=== PATIENT | female | born 1965 | race American Indian/Alaskan Native ===

== ENCOUNTER 2021-05-12 10:30 | Inpatient (IN) | payer OTHER ==
[2021-05-12] MEDS ORDERED: SODIUM CHLORIDE 0.9% 1000 ML 1,000 ML IV ONE (11:06)
[2021-05-12] MEDS ORDERED: ONDANSETRON 4 MG/2 ML INJ IV ONE (11:10)
--- NOTE | 2021-05-12 11:20 | Emergency Department Report ---
ED Syncope HPI - General Chief Complaint: Syncope Stated Complaint: SYNCOPE Time Seen by Provider: 05/12/21 10:52 Source: patient Exam Limitations: clinical condition - History of Present Illness Initial Comments: 56-year-old female with a past medical history of chronic iron deficiency anemia requiring blood transfusion, chronic left leg wound being managed at [facility] through [place], chronic migraines, and hypertension presents to the hospital complaining of generalized weakness x1 week and a syncopal episode 2 hours prior to arrival. Patient not currently taking iron tablets. Positive for exertion x1 week. She denies chest pain history of DVT/PE. Nausea, vomiting, and diarrhea for last 2 days without hematemesis, hematochezia, melena, or vaginal bleeding. She has a chronic ongoing headache due to migraines which is currently present on the right side of her head. She has a chronic left leg wound which she says is almost healed. Last wound dressing placed on May 08 with no signs of infection. Patient denies worsening leg pain or fever. Patient is vaccinated for Covid. EMS reports that O2 sat upon their arrival was in the 60s on room air. Nurse reports to me that patient's room air saturation in the mid 80s prior to supplemental oxygen placement. PMD: [place] - Related Data Allergies/Adverse Reactions: Allergies No Known Allergies Allergy (Unverified 09/03/14 17:03) Home Medications: Ambulatory Orders Ferrous Sulfate [Feosol 325mg] 325 mg PO BID 09/03/14 Ibuprofen [Motrin 800 MG tab] 800 mg PO TID PRN 09/03/14 SUMAtriptan SUCCINATE [Imitrex] 100 mg PO DAILY PRN 09/03/14 Butalb/Acetamin/Caff 50-325-40 [Fioricet 50-325-40] 2 tab PO Q6H PRN #15 tablet 09/12/14 HYDROcodone/APAP 10-325 [[place] 10-325 mg TAB] 1 each PO Q6H PRN #10 tablet 09/12/14 guaiFENesin [Robitussin] 200 mg PO Q6HR #20 tablet 09/12/14 levoFLOXacin [Levaquin] 500 mg PO QDAY #7 tablet 09/12/14 ED Review of Systems ROS: Stated complaint: SYNCOPE Other details as noted in HPI Comment: All other systems reviewed and negative ED Past Medical Hx - Past Medical History Hx Hypertension: Yes Hx Congestive Heart Failure: No Hx Diabetes: No Hx Arthritis: Yes Hx Headaches / Migraines: Yes Hx Asthma: No Hx COPD: No Additional medical history: Anemia from heavy periods - Surgical History Hx Cholecystectomy: Yes - Social History Smoking Status: Never Smoker - Medications Home Medications: Home Medications Medication Instructions Recorded Confirmed Last Taken Type Ferrous Sulfate [Feosol 325mg] 325 mg PO BID 09/03/14 09/03/14 Unknown History Ibuprofen [Motrin 800 MG tab] 800 mg PO TID PRN 09/03/14 09/03/14 09/02/14 History SUMAtriptan SUCCINATE [Imitrex] 100 mg PO DAILY PRN 09/03/14 09/04/14 Unknown History Butalb/Acetamin/Caff 50-325-40 2 tab PO Q6H PRN #15 tablet 09/12/14 Unknown Rx [Fioricet 50-325-40] HYDROcodone/APAP 10-325 [[place] 1 each PO Q6H PRN #10 tablet 09/12/14 Unknown Rx 10-325 mg TAB] guaiFENesin [Robitussin] 200 mg PO Q6HR #20 tablet 09/12/14 Unknown Rx levoFLOXacin [Levaquin] 500 mg PO QDAY #7 tablet 09/12/14 Unknown Rx ED Physical Exam - General Limitations: No Limitations ( ) - Other Other exam information: General: No acute distress Head: Atraumatic Eyes: normal appearance ENT: Moist mucous membranes Neck: Normal appearance, no midline tenderness Chest: Clear to auscultation bilaterally CV: Regular rate and rhythm Abdomen: Soft, normal bowel sounds, nontender, nondistended, no rebound or guarding Back: Normal inspection Extremity: Left leg completely wrapped in wound dressing below the knee and extending down to the foot Neuro: Lethargic but easily arousable, oriented x3, no facial asymmetry, speech clear, no gross motor sensory deficit Psych: Appropriate behavior Skin: No rash ED Course Vital Signs 05/12/21 05/12/21 05/12/21 10:39 10:45 10:49 Temperature 97.6 F Pulse Rate 106 H Respiratory 20 Rate Blood Pressure 137/76 118/70 Blood Pressure 118/70 [Left] O2 Sat by Pulse 83 L 94 96 Oximetry 05/12/21 05/12/21 05/12/21 11:01 11:07 11:31 Temperature 98.6 F Pulse Rate 104 H 106 H 101 H Respiratory 19 16 13 Rate Blood Pressure 118/70 118/70 102/61 Blood Pressure [Left] O2 Sat by Pulse 96 95 97 Oximetry 05/12/21 05/12/21 05/12/21 13:30 14:13 14:31 Temperature Pulse Rate 109 H 123 H 107 H Respiratory 15 20 20 Rate Blood Pressure 118/85 112/80 121/86 Blood Pressure [Left] O2 Sat by Pulse 98 98 100 Oximetry 05/12/21 05/12/21 05/12/21 15:01 15:31 16:01 Temperature Pulse Rate 110 H 116 H 110 H Respiratory 18 28 H 16 Rate Blood Pressure 121/86 118/78 119/76 Blood Pressure [Left] O2 Sat by Pulse 100 100 100 Oximetry 05/12/21 05/12/21 05/12/21 17:01 17:31 18:01 Temperature Pulse Rate 100 H 105 H 117 H Respiratory 16 17 20 Rate Blood Pressure 128/77 128/76 119/73 Blood Pressure [Left] O2 Sat by Pulse 100 100 100 Oximetry 05/12/21 05/12/21 05/12/21 18:31 19:01 19:11 Temperature Pulse Rate 101 H 101 H 102 H Respiratory 17 17 15 Rate Blood Pressure 91/49 115/66 115/66 Blood Pressure [Left] O2 Sat by Pulse 100 100 100 Oximetry 05/12/21 05/12/21 05/12/21 19:21 19:31 19:41 Temperature Pulse Rate 102 H 101 H 105 H Respiratory 18 17 16 Rate Blood Pressure 123/74 123/74 123/74 Blood Pressure [Left] O2 Sat by Pulse 100 100 100 Oximetry 05/12/21 05/12/21 05/12/21 19:50 20:01 20:11 Temperature Pulse Rate 114 H 111 H 105 H Respiratory 14 22 20 Rate Blood Pressure 112/56 112/56 112/56 Blood Pressure [Left] O2 Sat by Pulse 100 100 Oximetry 05/12/21 05/12/21 05/12/21 20:21 20:31 20:35 Temperature 97.5 F L Pulse Rate 112 H 111 H 110 H Respiratory 20 17 17 Rate Blood Pressure 112/67 112/67 Blood Pressure 112/67 [Left] O2 Sat by Pulse 100 100 100 Oximetry 05/12/21 05/12/21 05/12/21 20:41 20:51 21:01 Temperature Pulse Rate 111 H 105 H 103 H Respiratory 23 17 17 Rate Blood Pressure 112/67 106/67 106/67 Blood Pressure [Left] O2 Sat by Pulse 100 99 100 Oximetry 05/12/21 05/12/21 05/12/21 21:11 21:21 21:31 Temperature Pulse Rate 103 H 110 H 102 H Respiratory 16 17 18 Rate Blood Pressure 106/67 106/60 106/60 Blood Pressure [Left] O2 Sat by Pulse 100 100 100 Oximetry 05/12/21 05/12/21 05/12/21 21:41 21:51 22:29 Temperature 97.8 F Pulse Rate 104 H 104 H 114 H Respiratory 18 19 19 Rate Blood Pressure 106/60 110/69 112/70 Blood Pressure [Left] O2 Sat by Pulse 100 100 99 Oximetry - ABG Interpretation Ph: 7.43 PCO2: 37 PO2: 55 Bicarbonate: 24 Interpretation: other (hyoxia) ED Medical Decision Making - Lab Data Result diagrams: 05/13/21 06:10 05/12/21 11:25 Lab Results 05/12/21 05/12/21 05/12/21 Range/Units 11:25 11:25 11:25 WBC 17.5 H (4.5-11.0) K/mm3 RBC 4.20 (3.65-5.03) M/mm3 Hgb 11.8 (10.1-14.3) gm/dl Hct 36.9 (30.3-42.9) % MCV 88 (79-97) fl MCH 28 (28-32) pg MCHC 32 (30-34) % RDW 14.5 (13.2-15.2) % Plt Count 282 (140-440) K/mm3 Add Manual Diff Complete Total Counted 100 Seg Neutrophils % Radar Signal Processing Engineer Seg Neuts % (Manual) 96.0 H (40.0-70.0) % Band Neutrophils % 1.0 % Lymphocytes % (Manual) 2.0 L (13.4-35.0) % Monocytes % (Manual) 1.0 (0.0-7.3) % Nucleated RBC % Not Reportable Seg Neutrophils # Man 16.8 H (1.8-7.7) K/mm3 Band Neutrophils # 0.2 K/mm3 Lymphocytes # (Manual) 0.4 L (1.2-5.4) K/mm3 Abs React Lymphs (Man) 0.0 K/mm3 Monocytes # (Manual) 0.2 (0.0-0.8) K/mm3 Eosinophils # (Manual) 0.0 (0.0-0.4) K/mm3 Basophils # (Manual) 0.0 (0.0-0.1) K/mm3 Metamyelocytes # 0.0 K/mm3 Myelocytes # 0.0 K/mm3 Promyelocytes # 0.0 K/mm3 Blast Cells # 0.0 K/mm3 WBC Morphology Not Reportable Hypersegmented Neuts Not Reportable Hyposegmented Neuts Not Reportable Hypogranular Neuts Not Reportable Smudge Cells Not Reportable Toxic Granulation Not Reportable Toxic Vacuolation Not Reportable Dohle Bodies Not Reportable Pelger-Huet Anomaly Not Reportable Gary Rods Not Reportable Platelet Estimate Consistent w auto Clumped Platelets Not Reportable Plt Clumps, EDTA Not Reportable Large Platelets Not Reportable Giant Platelets Not Reportable Platelet Satelliting Not Reportable Plt Morphology Comment Not Reportable RBC Morphology Not Reportable Dimorphic RBCs Not Reportable Polychromasia Not Reportable Hypochromasia Not Reportable Poikilocytosis Not Reportable Anisocytosis 1+ Microcytosis Not Reportable Macrocytosis Not Reportable Spherocytes Not Reportable Pappenheimer Bodies Not Reportable Sickle Cells Not Reportable Target Cells Not Reportable Tear Drop Cells Not Reportable Ovalocytes Not Reportable Helmet Cells Not Reportable Van-[place] Bodies Not Reportable [place] Rings Not Reportable Ran Cells Not Reportable Bite Cells Not Reportable Crenated Cell Not Reportable Elliptocytes Not Reportable Acanthocytes (Spur) Not Reportable Rouleaux Not Reportable Hemoglobin C Crystals Not Reportable Schistocytes Not Reportable Malaria parasites Not Reportable [place]air Bodies Not Reportable Hem Pathologist Commnt No PT 14.3 (12.2-14.9) Sec. INR 1.00 (0.87-1.13) APTT 31.1 (24.2-36.6) Sec. ABG pH (7.350-7.450) pH Units ABG pCO2 mm Hg ABG pO2 (80.0-90.0) mm Hg ABG HCO3 (20.0-26.0) mmol/L ABG O2 Saturation (95.0-99.0) % ABG O2 Content (0.0-44) ABG Base Excess (-2.0-3.0) mmol/L ABG Hemoglobin (12.0-16.0) gm/dl ABG Carboxyhemoglobin (0.0-5.0) % ABG Methemoglobin (0.0-1.5) % Oxyhemoglobin (95.0-99.0) % FiO2 % Sodium 141 (137-145) mmol/L Potassium 3.4 L (3.6-5.0) mmol/L Chloride 99.9 (98-107) mmol/L Carbon Dioxide 25 (22-30) mmol/L Anion Gap 20 mmol/L BUN 14 (7-17) mg/dL Creatinine 0.8 (0.6-1.2) mg/dL Estimated GFR > 60 ml/min BUN/Creatinine Ratio 18 % Glucose 169 H (65-100) mg/dL Calcium 9.3 (8.4-10.2) mg/dL Magnesium 1.90 (1.7-2.3) mg/dL Total Bilirubin 0.80 (0.1-1.2) mg/dL AST 10 (5-40) units/L ALT 8 (7-56) units/L Alkaline Phosphatase 122 (35-129) units/L Troponin T 0.018 (0.00-0.029) ng/mL Total Protein 7.5 (6.3-8.2) g/dL Albumin 3.6 L (3.9-5) g/dL Albumin/Globulin Ratio 0.9 % Blood Type Antibody Screen 05/12/21 05/12/21 Range/Units 11:25 12:29 WBC (4.5-11.0) K/mm3 RBC (3.65-5.03) M/mm3 Hgb (10.1-14.3) gm/dl Hct (30.3-42.9) % MCV (79-97) fl MCH (28-32) pg MCHC (30-34) % RDW (13.2-15.2) % Plt Count (140-440) K/mm3 Add Manual Diff Total Counted Seg Neutrophils % Seg Neuts % (Manual) (40.0-70.0) % Band Neutrophils % % Lymphocytes % (Manual) (13.4-35.0) % Monocytes % (Manual) (0.0-7.3) % Nucleated RBC % Seg Neutrophils # Man (1.8-7.7) K/mm3 Band Neutrophils # K/mm3 Lymphocytes # (Manual) (1.2-5.4) K/mm3 Abs React Lymphs (Man) K/mm3 Monocytes # (Manual) (0.0-0.8) K/mm3 Eosinophils # (Manual) (0.0-0.4) K/mm3 Basophils # (Manual) (0.0-0.1) K/mm3 Metamyelocytes # K/mm3 Myelocytes # K/mm3 Promyelocytes # K/mm3 Blast Cells # K/mm3 WBC Morphology Hypersegmented Neuts Hyposegmented Neuts Hypogranular Neuts Smudge Cells Toxic Granulation Toxic Vacuolation Dohle Bodies Pelger-Huet Anomaly Gary Rods Platelet Estimate Clumped Platelets Plt Clumps, EDTA Large Platelets Giant Platelets Platelet Satelliting Plt Morphology Comment RBC Morphology Dimorphic RBCs Polychromasia Hypochromasia Poikilocytosis Anisocytosis Microcytosis Macrocytosis Spherocytes Pappenheimer Bodies Sickle Cells Target Cells Tear Drop Cells Ovalocytes Helmet Cells Van-[place] Bodies [place] Rings [place] Cells Bite Cells Crenated Cell Elliptocytes Acanthocytes (Spur) Rouleaux Hemoglobin C Crystals Schistocytes Malaria parasites Aldair Bodies Hem Pathologist Commnt PT (12.2-14.9) Sec. INR (0.87-1.13) APTT (24.2-36.6) Sec. ABG pH 7.430 (7.350-7.450) pH Units ABG pCO2 37.5 mm Hg ABG pO2 55.3 L (80.0-90.0) mm Hg ABG HCO3 24.3 (20.0-26.0) mmol/L ABG O2 Saturation 89.3 L (95.0-99.0) % ABG O2 Content 15.4 (0.0-44) ABG Base Excess 0.2 (-2.0-3.0) mmol/L ABG Hemoglobin 12.5 (12.0-16.0) gm/dl ABG Carboxyhemoglobin 1.5 (0.0-5.0) % ABG Methemoglobin 0.5 (0.0-1.5) % Oxyhemoglobin 87.6 L (95.0-99.0) % FiO2 21 % Sodium (137-145) mmol/L Potassium (3.6-5.0) mmol/L Chloride (98-107) mmol/L Carbon Dioxide (22-30) mmol/L Anion Gap mmol/L BUN (7-17) mg/dL Creatinine (0.6-1.2) mg/dL Estimated GFR ml/min BUN/Creatinine Ratio % Glucose (65-100) mg/dL Calcium (8.4-10.2) mg/dL Magnesium (1.7-2.3) mg/dL Total Bilirubin (0.1-1.2) mg/dL AST (5-40) units/L ALT (7-56) units/L Alkaline Phosphatase (35-129) units/L Troponin T (0.00-0.029) ng/mL Total Protein (6.3-8.2) g/dL Albumin (3.9-5) g/dL Albumin/Globulin Ratio % Blood Type A POSITIVE Antibody Screen Negative - EKG Data -: EKG Interpreted by [facility] EKG shows normal: sinus rhythm, ST-T waves (Non-STEMI) Rate: tachycardia (103) - Radiology Data Radiology results: report reviewed CHEST 1 VIEW INDICATION / CLINICAL INFORMATION: Syncope. COMPARISON: 09/11/2014 FINDINGS: SUPPORT DEVICES: None. HEART / MEDIASTINUM: No significant abnormality. LUNGS / PLEURA: No focal consolidation. There is a 1.5 cm nodular opacity in the left upper lung zone, not visualized on reference examination. No effusion. No pneumothorax. ADDITIONAL FINDINGS: No significant additional findings. IMPRESSION: 1. No acute findings. 2. 1.5 cm nodular opacity in the left upper lung zone, not visualized on refer ence exam. Recommend further evaluation with CT chest with contrast, which could be performed in out patient setting. CT HEAD WITHOUT CONTRAST INDICATION / CLINICAL INFORMATION: HEADACHE, SYNCOPE, LETHARGY. TECHNIQUE: All CT scans at this location are performed using CT dose reduction for ALARA by means of automated exposure control. COMPARISON: None available. FINDINGS: HEMORRHAGE: None. ACUTE INFARCTION: No Significant Abnormality MASS/MASS EFFECT: No Significant Abnormality CEREBRAL PARENCHYMA: No acute focal attenuation abnormality. VENTRICULAR SYSTEM: Normal in size and morphology for the patient's age. ORBITS: Normal as visualized. SKULL: No significant abnormality. PARANASAL SINUSES / MASTOID AIR CELLS: Normal as visualized. ADDITIONAL FINDINGS: None. IMPRESSION: 1. No acute intracranial abnormality. CTA CHEST WITH CONTRAST INDICATION / CLINICAL INFORMATION: hypoxia, syncope. TECHNIQUE: Axial CT images were obtained through the chest after injection of IV contrast. 3 plane MIP and/or 3D reconstructions were produced. All CT scans at this location are performed using CT dose reduction for ALARA by means of automated exposure control. COMPARISON: None available. FINDINGS: PULMONARY ARTERIES: Extensive filling defects within the segmental and subsegmental pulmonary arteries of all lobes of the lungs. There is minimal involvement of the distal right main pulmonary artery. No central pulmonary embolus. THORACIC AORTA: No significant abnormality. HEART: There is cardiac enlargement with evidence of right heart strain. RV/LV ratio measures 2.6. ADENOPATHY: No significant adenopathy. LUNGS/PLEURA: Patchy airspace opacity within the left upper lobe, to include th e lingula. Remainder of the lungs are clear. No pleural effusion. No pneumothorax. ADDITIONAL FINDINGS: None. UPPER ABDOMEN: No acute findings. SKELETAL STRUCTURES: No significant osseous abnormality. IMPRESSION: 1. Extensive acute bilateral pulmonary emboli involving the segmental and subsegmental pulmonary arteries of all lobes. Minimal involvement of the distal right main pulmonary artery. 2. There is evidence of right heart failure with markedly increased RV/LV ratio . 3. Patchy airspace opacities within the left upper lobe. This may reflect infiltrate or possibly pulmonary infarct. - Medical Decision Making 56-year-old female presents to the hospital with shortness of breath x1 week with syncope today. Hypoxia noted upon presentation which is confirmed by room air ABG. No acid or base disturbance identified. CT angiogram chest confirmed suspicion of bilateral pulmonary emboli with possible pulmonary infarct versus infiltrate. Patient empirically treated with Rocephin azithromycin and blood cultures obtained. Patient also presented complaining of right-sided headache with history of chronic migraines. CT head unremarkable. Patient received a small dose of Benadryl and Reglan for migraine related pain. Left leg with Unna boot and chronic wound suspected as source of pulmonary embolism. Patient treated in the ED with supplemental oxygen support and heparin drip initiated. Covid test ordered. Patient's PMD is affiliated with [place] and [place] transfer service notified. Awaiting callback at disposition to Dr. Campbell. Patient will likely be admitted here given need for oxygen and heparin drip. If patient is admitted here I suggest vascular consultation to determine if patient is a candidate for any intervention given significant clot burden and signs of right heart failure on CT. see Dr Campbell Note: [facility] approved admission here Vascular consulted and no intervention recommend Hospitalist admitted patient Critical Care Time: Yes Critical care time in (mins) excluding proc time.: 35 Critical care attestation.: If time is entered above; I have spent that time in minutes in the direct care of this critically ill patient, excluding procedure time. ED Disposition Clinical Impression: Bilateral pulmonary embolism, Pulmonary infarct, Pulmonary infiltrate Acute respiratory failure Qualifiers: Respiratory failure complication: hypoxia Qualified Code(s): J96.01 - Acute respiratory failure with hypoxia Leg wound, left Qualifiers: Encounter type: initial encounter Qualified Code(s): S81.802A - Unspecified open wound, left lower leg, initial encounter Syncope Qualifiers: Encounter type: initial encounter Disposition: 09 ADMITTED INPATIENT Is pt being admited?: Yes Condition: Stable
--- NOTE | 2021-05-12 12:03 | XRay Report ---
CHEST 1 VIEW INDICATION / CLINICAL INFORMATION: Syncope. COMPARISON: 09/11/2014 FINDINGS: SUPPORT DEVICES: None. HEART / MEDIASTINUM: No significant abnormality. LUNGS / PLEURA: No focal consolidation. There is a 1.5 cm nodular opacity in the left upper lung zone , not visualized on reference examination. No effusion. No pneumothorax. ADDITIONAL FINDINGS: No significant additional findings. IMPRESSION: 1. No acute findings. 2. 1.5 cm nodular opacity in the left upper lung zone, not visualized on reference exam. Recommend f urther evaluation with CT chest with contrast, which could be performed in outpatient setting. Signer Name: Stu Randolph MD Signed: 05/12/2021 11:59 AM Workstation Name: [id number]
[2021-05-12 12:42] LABS: Hematocrit 36.9 % (30.3-42.9); Hemoglobin 11.8 gm/dl (10.1-14.3); Mean Corpuscular HGB Conc 32 % (30-34); Mean Corpuscular Volume 88 fl (79-97); Platelet Count 282 K/mm3 (140-440); Red Cell Distribution Width 14.5 % (13.2-15.2)
[2021-05-12 12:42] LABS: ABG Base Excess 0.2 mmol/L (-2.0-3.0); ABG HCO3 24.3 mmol/L (20.0-26.0); ABG Methemoglobin 0.5 % (0.0-1.5); ABG Oxygen Saturation 89.3 % (95.0-99.0); ABG PCO2 37.5 mm Hg; ABG PH 7.43 pH Units (7.350-7.450); ABG PO2 55.3 mm Hg (80.0-90.0)
--- NOTE | 2021-05-12 12:52 | Cat Scan Report ---
CT HEAD WITHOUT CONTRAST INDICATION / CLINICAL INFORMATION: HEADACHE, SYNCOPE, LETHARGY. TECHNIQUE: All CT scans at this location are performed using CT dose reduction for ALARA by means of automated exposure control. COMPARISON: None available. FINDINGS: HEMORRHAGE: None. ACUTE INFARCTION: No Significant Abnormality MASS/MASS EFFECT: No Significant Abnormality CEREBRAL PARENCHYMA: No acute focal attenuation abnormality. VENTRICULAR SYSTEM: Normal in size and morphology for the patient's age. ORBITS: Normal as visualized. SKULL: No significant abnormality. PARANASAL SINUSES / MASTOID AIR CELLS: Normal as visualized. ADDITIONAL FINDINGS: None. IMPRESSION: 1. No acute intracranial abnormality. Signer Name: Stu Randolph MD Signed: 05/12/2021 12:47 PM Workstation Name: [id number]
[2021-05-12 12:54] LABS: Partial Thromboplastin Time 31.1 Sec. (24.2-36.6)
[2021-05-12 13:11] LABS: Alanine Aminotransferase 8 units/L (7-56); Albumin 3.6 g/dL (3.9-5); BUN/Creatinine Ratio 18; Blood Urea Nitrogen 14 mg/dL (7-17); Calcium 9.3 mg/dL (8.4-10.2); Hemolysis Index 4
[2021-05-12 13:34] LABS: Anisocytosis 1+; Band Neutrophils # (Manual) 0.2 K/mm3; Platelet Estimate Consistent w Auto; Total Cells Counted 100
[2021-05-12] MEDS ORDERED: ONDANSETRON 4 MG/2 ML INJ ONE (14:26)
[2021-05-12] MEDS ORDERED: SODIUM CHLORIDE 0.9% 1000 ML 1,000 ML ONE (14:26)
[2021-05-12] MEDS ORDERED: diphenhydrAMINE 50 MG/ML VIAL IV ONE (14:33)
[2021-05-12] MEDS ORDERED: METOCLOPRAMIDE 10 MG/2 ML INJ IV ONE (14:33)
[2021-05-12] MEDS ORDERED: AZITHROMYCIN/NS 500 MG/250 ML 500 MG/250 ML BAG IV ONE (14:36)
[2021-05-12] MEDS ORDERED: cefTRIAXone/NS 2 GM/100 ML 2 GM/100 ML BAG IV ONE (14:36)
[2021-05-12] MEDS ORDERED: HEPARIN 10,000 UNITS/10 ML VIAL IV PRN (14:37)
[2021-05-12] MEDS ORDERED: HEPARIN 10,000 UNITS/10 ML VIAL IV ONE (14:37)
--- NOTE | 2021-05-12 14:41 | Cat Scan Report ---
CTA CHEST WITH CONTRAST INDICATION / CLINICAL INFORMATION: hypoxia, syncope. TECHNIQUE: Axial CT images were obtained through the chest after injection of IV contrast. 3 plane MS P and/or 3D reconstructions were produced. All CT scans at this location are performed using CT dose reduction for ALARA by means of automated exposure control. COMPARISON: None available. FINDINGS: PULMONARY ARTERIES: Extensive filling defects within the segmental and subsegmental pulmonary arterie s of all lobes of the lungs. There is minimal involvement of the distal right main pulmonary artery. No central pulmonary embolus. THORACIC AORTA: No significant abnormality. HEART: There is cardiac enlargement with evidence of right heart strain. RV/LV ratio measures 2.6. ADENOPATHY: No significant adenopathy. LUNGS/PLEURA: Patchy airspace opacity within the left upper lobe, to include the lingula. Remainder o f the lungs are clear. No pleural effusion. No pneumothorax. ADDITIONAL FINDINGS: None. UPPER ABDOMEN: No acute findings. SKELETAL STRUCTURES: No significant osseous abnormality. IMPRESSION: 1. Extensive acute bilateral pulmonary emboli involving the segmental and subsegmental pulmonary yadi beck of all lobes. Minimal involvement of the distal right main pulmonary artery. 2. There is evidence of right heart failure with markedly increased RV/LV ratio. 3. Patchy airspace opacities within the left upper lobe. This may reflect infiltrate or possibly pulm onary infarct. Findings were discussed with Dr. Ritchie by phone on 05/12/2021 1:37 PM Signer Name: Ramírez Jaime MD Signed: 05/12/2021 2:37 PM Workstation Name: [id number]
--- NOTE | 2021-05-12 15:26 | Emergency Department Report ---
Blank Doc - Documentation Documentation: Case was discussed with the [facility] who agrees that the patient is unstable and would benefit from admission here. Vascular surgeon has been consulted to determine best approach and possible intervention. Hospitalist has been notified for admission.
[2021-05-12] MEDS: HEPARIN/ 0.45% NACL DRIP 25,000 UNIT/500 ML BAG IV SCH ×2 (15:49→19:06)
--- NOTE | 2021-05-12 15:54 | Event Note ---
Date: 05/12/21 Patient with a history of PE noted on CT scan with evidence of RV/LV ratio greater than 1 indicating right heart strain. No troponin leak. PE is p redominately segmental and sub-segmental on review of CT images. Patient satting 100% on oxygen by nasal canula right now. Given the peripheral nature of her PE and stable clinical condition, would not intervene with catheter directed therapy at this time. Additionally, her active leg wound would place her at risk for bleeding with t-PA administration. Would recommend admission to hospitalist, initiation of heparin drip and we will see her in consultation. Discussed her plan of care with Dr. Campbell.
[2021-05-12] MEDS ORDERED: BUTALB/ACETAMINOPHEN/CAFFEINE TAB PO PRN (21:54)
[2021-05-12] MEDS ORDERED: METOCLOPRAMIDE 10 MG/2 ML INJ IV PRN (22:03)
[2021-05-12] MEDS ORDERED: ONDANSETRON 4 MG/2 ML INJ IV PRN (22:03)
[2021-05-12] MEDS ORDERED: oxyCODONE /ACETAMINOPHEN 5-325MG TAB PO PRN (22:03)
[2021-05-12] MEDS ORDERED: ACETAMINOPHEN 325 MG TAB PO PRN (22:03)
[2021-05-12] MEDS: FERROUS SULFATE 325 MG TAB PO SCH (22:37)
[2021-05-12] MEDS: SODIUM CHLORIDE 0.9% 1000 ML 1,000 ML IV SCH (22:39)
[2021-05-12] MEDS: HYDROmorphone 1 MG/1 ML INJ IV PRN (23:07)
[2021-05-12] MEDS ORDERED: POTASSIUM CHLORIDE ER 20 MEQ TAB PO ONE (23:15)
[2021-05-13 06:40] LABS: Basophils % (Auto) 0.3 % (0.0-1.8); Eosinophils % (Auto) 0.1 % (0.0-4.3); Hematocrit 34.6 % (30.3-42.9); Hemoglobin 11.1 gm/dl (10.1-14.3); Lymphocytes # (Auto) 1.2 K/mm3 (1.2-5.4); Lymphocytes % (Auto) 10.3 % (13.4-35.0); Mean Corpuscular HGB Conc 32 % (30-34); Mean Corpuscular Volume 87 fl (79-97); Monocytes # (Auto) 0.4 K/mm3 (0.0-0.8); Monocytes % (Auto) 3.7 % (0.0-7.3); Platelet Count 310 K/mm3 (140-440); Red Blood Count 3.95 M/mm3 (3.65-5.03); Red Cell Distribution Width 14.5 % (13.2-15.2)
--- NOTE | 2021-05-13 06:52 | History and Physical Report ---
History of Present Illness Date of examination: 05/12/21 Date of admission: 05/12/21 15:26 Chief complaint: Shortness of breath for 4 to 5 days History of present illness: 56-year-old female with morbid obesity weighing about 360 pounds with history of chronic iron deficiency and left leg wound for 2 years which is healing, hypertension comes in for shortness of breath for 4 days. Patient is mostly in the bed and not active. Patient also passed out 2 hours prior to arrival. No GI bleed or vaginal bleeding. Last 1 dressing was placed in normal second week with no signs of infection. Left leg is dependent Tay bandage. Patient has shortness of breath on minimal exertion and left breast. No chest pain. No fever or chills. No cough. No exposure to coronavirus. Patient is vaccinated for Covid. - Past Medical History Hypertension: Yes Arthritis: Yes Headaches / Migraines: Yes Additional medical history: Anemia from heavy periods - Surgical History Cholecystectomy: Yes - Social History Smoking Status: Never Smoker Review of Systems ROS: Stated complaint: SYNCOPE Other details as noted in HPI Comment: All other systems reviewed and negative Medications and Allergies Allergies Allergy/AdvReac Type Severity Reaction Status Date / Time No Known Allergies Allergy Unverified 09/03/14 17:03 Home Medications Medication Instructions Recorded Confirmed Last Taken Type Ferrous Sulfate [Feosol 325mg] 325 mg PO BID 09/03/14 09/03/14 Unknown History Ibuprofen [Motrin 800 MG tab] 800 mg PO TID PRN 09/03/14 09/03/14 09/02/14 History SUMAtriptan SUCCINATE [Imitrex] 100 mg PO DAILY PRN 09/03/14 09/04/14 Unknown History Butalb/Acetamin/Caff 50-325-40 2 tab PO Q6H PRN #15 tablet 09/12/14 Unknown Rx [Fioricet 50-325-40] HYDROcodone/APAP 10-325 [[place] 1 each PO Q6H PRN #10 tablet 09/12/14 Unknown Rx 10-325 mg TAB] guaiFENesin [Robitussin] 200 mg PO Q6HR #20 tablet 09/12/14 Unknown Rx levoFLOXacin [Levaquin] 500 mg PO QDAY #7 tablet 09/12/14 Unknown Rx Active Meds: Active Medications Acetaminophen (Acetaminophen 325 Mg Tab) 650 mg PO Q4H PRN PRN Reason: Pain MILD(1-3)/Fever >100.5/LUNA Acetaminophen/Butalbital/Caffeine (Butalb/Acetaminophen/Caffeine Tab) 2 tab PO Q6H PRN PRN Reason: Headache Hydrocodone Bitart/Acetaminophen (Hydrocodone/Acetaminophen 10-325mg Tab) 1 each PO Q6H PRN PRN Reason: Pain, Moderate (4-6) Famotidine (Famotidine 20 Mg/2 Ml Inj) 20 mg IV BID BOBBY Ferrous Sulfate (Ferrous Sulfate 325 Mg Tab) 325 mg PO BID [facility] Last Admin: 05/12/21 22:37 Dose: 325 mg Documented by: Heparin Sodium (Porcine) (Heparin 10,000 Units/10 Ml Vial) 4,800 unit 40 unit/kg (4800 unit) IV Q6H PRN PRN Reason: Anti-Xa Assay < 0.1 units/ml Hydromorphone HCl (Hydromorphone 1 Mg/1 Ml Inj) 0.5 mg IV Q3H PRN PRN Reason: Pain , Severe (7-10) Last Admin: 05/12/21 23:07 Dose: 0.5 mg Documented by: Heparin Sodium/Sodium Chloride (Heparin/ 0.45% Nacl-25,000 Unit/500 Ml) 25,000 unit in 500 mls @ 30 mls/hr IV TITR BOBBY; Protocol Last Titration: 05/13/21 00:02 Dose: 1,500 units/hr, 30 mls/hr Documented by: Sodium Chloride (Nacl 0.9% 1000 Ml) 1,000 mls @ 75 mls/hr IV DIRECT BOBBY Last Admin: 05/12/21 22:39 Dose: 75 mls/hr Documented by: Metoclopramide HCl (Metoclopramide 10 Mg/2 Ml Inj) 10 mg IV Q6H PRN PRN Reason: Nausea And Vomiting Ondansetron HCl (Ondansetron 4 Mg/2 Ml Inj) 4 mg IV Q8H PRN PRN Reason: Nausea And Vomiting Sodium Chloride (Sodium Chloride 0.9% 10 Ml Flush Syringe) 10 ml IV BID BOBBY Sodium Chloride (Sodium Chloride 0.9% 10 Ml Flush Syringe) 10 ml IV PRN PRN PRN Reason: LINE FLUSH Exam - Constitutional Vitals: Temp Pulse Resp BP Pulse Ox 97.6 F 102 H 20 96/61 95 11/14/21 03:32 05/13/21 03:32 05/13/21 03:32 05/13/21 03:32 05/13/21 03:32 General appearance: Present: mild distress, well-nourished - EENT Eyes: Present: PERRL ENT: hearing intact, clear oral mucosa - Neck Neck: Present: supple, normal ROM - Respiratory Respiratory effort: normal Respiratory: bilateral: CTA - Cardiovascular Heart rate: 98 Rhythm: regular Heart Sounds: Present: S1 & S2. Absent: rub, click - Extremities Extremities: pulses symmetrical, No edema Peripheral Pulses: within normal limits - Abdominal General gastrointestinal: Present: soft, non-tender, non-distended, normal bowel sounds Female genitourinary: Present: normal - Rectal Rectal Exam: deferred - Integumentary Integumentary: Present: clear, warm, dry - Musculoskeletal Musculoskeletal: gait normal, strength equal bilaterally - Psychiatric Psychiatric: appropriate mood/affect, intact judgment & insight - Neurologic Neurologic: CNII-XII intact, moves all extremities - Allied Health Allied health notes reviewed: nursing, case management HEART Score - HEART Score History: Slightly suspicious Age: 45-65 Risk factors: 1-2 risk factors Troponin: Troponin T 0.018 ng/mL (0.00-0.029) 05/12/21 11:25 Troponin: < normal limit Results - Labs CBC & Chem 7: 05/13/21 06:10 05/12/21 11:25 Labs: Laboratory Last Values WBC 11.6 K/mm3 (4.5-11.0) H 05/13/21 06:10 RBC 3.95 M/mm3 (3.65-5.03) 05/13/21 06:10 Hgb 11.1 gm/dl (10.1-14.3) 05/13/21 06:10 Hct 34.6 % (30.3-42.9) 05/13/21 06:10 MCV 87 fl (79-97) 05/13/21 06:10 MCH 28 pg (28-32) 05/13/21 06:10 MCHC 32 % (30-34) 05/13/21 06:10 RDW 14.5 % (13.2-15.2) 05/13/21 06:10 Plt Count 310 K/mm3 (140-440) 05/13/21 06:10 Lymph % (Auto) 10.3 % (13.4-35.0) L 05/13/21 06:10 [place] % (Auto) 3.7 % (0.0-7.3) 05/13/21 06:10 Eos % (Auto) 0.1 % (0.0-4.3) 05/13/21 06:10 Baso % (Auto) 0.3 % (0.0-1.8) 05/13/21 06:10 Lymph # (Auto) 1.2 K/mm3 (1.2-5.4) 05/13/21 06:10 [place] # (Auto) 0.4 K/mm3 (0.0-0.8) 05/13/21 06:10 Eos # (Auto) 0.0 K/mm3 (0.0-0.4) 05/13/21 06:10 Baso # (Auto) 0.0 K/mm3 (0.0-0.1) 05/13/21 06:10 Add Manual Diff Complete 05/12/21 11:25 Total Counted 100 05/12/21 11:25 Seg Neutrophils % 85.6 % (40.0-70.0) H 05/13/21 06:10 Seg Neuts % (Manual) 96.0 % (40.0-70.0) H 05/12/21 11:25 Band Neutrophils % 1.0 % 05/12/21 11:25 Lymphocytes % (Manual) 2.0 % (13.4-35.0) L 05/12/21 11:25 Monocytes % (Manual) 1.0 % (0.0-7.3) 05/12/21 11:25 Nucleated RBC % Not Reportable 05/12/21 11:25 Seg Neutrophils # 9.9 K/mm3 (1.8-7.7) H 05/13/21 06:10 Seg Neutrophils # Man 16.8 K/mm3 (1.8-7.7) H 05/12/21 11:25 Band Neutrophils # 0.2 K/mm3 05/12/21 11:25 Lymphocytes # (Manual) 0.4 K/mm3 (1.2-5.4) L 05/12/21 11:25 Abs React Lymphs (Man) 0.0 K/mm3 05/12/21 11:25 Monocytes # (Manual) 0.2 K/mm3 (0.0-0.8) 05/12/21 11:25 Eosinophils # (Manual) 0.0 K/mm3 (0.0-0.4) 05/12/21 11:25 Basophils # (Manual) 0.0 K/mm3 (0.0-0.1) 05/12/21 11:25 Metamyelocytes # 0.0 K/mm3 05/12/21 11:25 Myelocytes # 0.0 K/mm3 05/12/21 11:25 Promyelocytes # 0.0 K/mm3 05/12/21 11:25 Blast Cells # 0.0 K/mm3 05/12/21 11:25 WBC Morphology Not Reportable 05/12/21 11:25 Hypersegmented Neuts Not Reportable 05/12/21 11:25 Hyposegmented Neuts Not Reportable 05/12/21 11:25 Hypogranular Neuts Not Reportable 05/12/21 11:25 Smudge Cells Not Reportable 05/12/21 11:25 Toxic Granulation Not Reportable 05/12/21 11:25 Toxic Vacuolation Not Reportable 05/12/21 11:25 Dohle Bodies Not Reportable 05/12/21 11:25 Pelger-Huet Anomaly Not Reportable 05/12/21 11:25 Gary Rods Not Reportable 05/12/21 11:25 Platelet Estimate Consistent w auto 05/12/21 11:25 Clumped Platelets Not Reportable 05/12/21 11:25 Plt Clumps, EDTA Not Reportable 05/12/21 11:25 Large Platelets Not Reportable 05/12/21 11:25 Giant Platelets Not Reportable 05/12/21 11:25 Platelet Satelliting Not Reportable 05/12/21 11:25 Plt Morphology Comment Not Reportable 05/12/21 11:25 RBC Morphology Not Reportable 05/12/21 11:25 Dimorphic RBCs Not Reportable 05/12/21 11:25 Polychromasia Not Reportable 05/12/21 11:25 Hypochromasia Not Reportable 05/12/21 11:25 Poikilocytosis Not Reportable 05/12/21 11:25 Anisocytosis 1+ 05/12/21 11:25 Microcytosis Not Reportable 05/12/21 11:25 Macrocytosis Not Reportable 05/12/21 11:25 Spherocytes Not Reportable 05/12/21 11:25 Pappenheimer Bodies Not Reportable 05/12/21 11:25 Sickle Cells Not Reportable 05/12/21 11:25 Target Cells Not Reportable 05/12/21 11:25 Tear Drop Cells Not Reportable 05/12/21 11:25 Ovalocytes Not Reportable 05/12/21 11:25 Helmet Cells Not Reportable 05/12/21 11:25 [place] Bodies Not Reportable 05/12/21 11:25 [place] Rings Not Reportable 05/12/21 11:25 [place] Cells Not Reportable 05/12/21 11:25 Bite Cells Not Reportable 05/12/21 11:25 Crenated Cell Not Reportable 05/12/21 11:25 Elliptocytes Not Reportable 05/12/21 11:25 Acanthocytes (Spur) Not Reportable 05/12/21 11:25 Rouleaux Not Reportable 05/12/21 11:25 Hemoglobin C Crystals Not Reportable 05/12/21 11:25 Schistocytes Not Reportable 05/12/21 11:25 Malaria parasites Not Reportable 05/12/21 11:25 [place] Bodies Not Reportable 05/12/21 11:25 Hem Pathologist Commnt No 05/12/21 11:25 PT 14.3 Sec. (12.2-14.9) 05/12/21 11:25 INR 1.00 (0.87-1.13) 05/12/21 11:25 APTT 31.1 Sec. (24.2-36.6) 05/12/21 11:25 Heparin Anti-Xa Level 0.47 U.I./ml (0.3-0.7) 05/13/21 06:10 ABG pH 7.430 pH Units (7.350-7.450) 05/12/21 12:29 ABG pCO2 37.5 mm Hg 05/12/21 12:29 ABG pO2 55.3 mm Hg (80.0-90.0) L 05/12/21 12:29 ABG HCO3 24.3 mmol/L (20.0-26.0) 05/12/21 12:29 ABG O2 Saturation 89.3 % (95.0-99.0) L 05/12/21 12:29 ABG O2 Content 15.4 (0.0-44) 05/12/21 12:29 ABG Base Excess 0.2 mmol/L (-2.0-3.0) 05/12/21 12:29 ABG Hemoglobin 12.5 gm/dl (12.0-16.0) 05/12/21 12:29 ABG Carboxyhemoglobin 1.5 % (0.0-5.0) 05/12/21 12:29 ABG Methemoglobin 0.5 % (0.0-1.5) 05/12/21 12: Oxyhemoglobin 87.6 % (95.0-99.0) L 05/12/21 12:29 FiO2 21 % 05/12/21 12:29 Sodium 141 mmol/L (137-145) 05/12/21 11:25 Potassium 3.4 mmol/L (3.6-5.0) L 05/12/21 11:25 Chloride 99.9 mmol/L (98-107) 05/12/21 11:25 Carbon Dioxide 25 mmol/L (22-30) 05/12/21 11:25 Anion Gap 20 mmol/L 05/12/21 11:25 BUN 14 mg/dL (7-17) 05/12/21 11:25 Creatinine 0.8 mg/dL (0.6-1.2) 05/12/21 11:25 Estimated GFR > 60 ml/min 05/12/21 11:25 BUN/Creatinine Ratio 18 % 05/12/21 11:25 Glucose 169 mg/dL (65-100) H 05/12/21 11:25 Calcium 9.3 mg/dL (8.4-10.2) 05/12/21 11:25 Magnesium 1.90 mg/dL (1.7-2.3) 05/12/21 11:25 Total Bilirubin 0.80 mg/dL (0.1-1.2) 05/12/21 11:25 AST 10 units/L (5-40) 05/12/21 11:25 ALT 8 units/L (7-56) 05/12/21 11:25 Alkaline Phosphatase 122 units/L (35-129) 05/12/21 11:25 Troponin T 0.018 ng/mL (0.00-0.029) 05/12/21 11:25 Total Protein 7.5 g/dL (6.3-8.2) 05/12/21 11:25 Albumin 3.6 g/dL (3.9-5) L 05/12/21 11:25 Albumin/Globulin Ratio 0.9 % 05/12/21 11:25 Blood Type A POSITIVE 05/12/21 11:25 Antibody Screen Negative 05/12/21 11:25 Short CBC 05/12/21 05/13/21 Range/Units 11:25 06:10 WBC 17.5 H 11.6 H (4.5-11.0) K/mm3 Hgb 11.8 11.1 (10.1-14.3) gm/dl Hct 36.9 34.6 (30.3-42.9) % Plt Count 282 310 (140-440) K/mm3 BMP 05/12/21 11:25 Sodium 141 Potassium 3.4 L Chloride 99.9 Carbon Dioxide 25 BUN 14 Creatinine 0.8 Glucose 169 H Calcium 9.3 Cardiac Enzymes 05/12/21 Range/Units 11:25 Troponin T 0.018 (0.00-0.029) ng/mL Liver Function 05/12/21 Range/Units 11:25 Total Bilirubin 0.80 (0.1-1.2) mg/dL AST 10 (5-40) units/L ALT 8 (7-56) units/L Alkaline Phosphatase 122 (35-129) units/L Albumin 3.6 L (3.9-5) g/dL Microbiology: Microbiology 05/12/21 14:54 Peripheral/Venous Blood Culture - Preliminary Culture in Progress 05/12/21 14:44 Peripheral/Venous Blood Culture - Preliminary Culture in Progress - Imaging and Cardiology EKG: report reviewed (Sinus tachycardia) CT scan - chest: report reviewed (Bilateral pulmonary embolism) Imaging and Cardiology: Chest CTA Extensive acute bilateral pulmonary emboli involving the segmental and subsegmental pulmonary arteries of lower lobes. Minimal involvement of the distal right main pulmonary artery. There is evidence of right heart failure with markedly increased RV/LV ratio. Patchy airspace opacities within the left upper lobe. This may reflect infiltrates or possibly pulmonary infarct. Chest x-ray No acute findings [place]/IV: Voiding Method External Female Catheter Assessment and Plan Advance Directives: Yes (Full code) VTE prophylaxis?: Chemical Plan of care discussed with patient/family: Yes - Patient Problems (1) Acute pulmonary embolism Current Visit: Yes Status: Acute Qualifiers: Acute cor pulmonale presence: without acute cor pulmonale Plan to address problem: Patient started on IV heparin as per standard protocol No cor pulmonale Vascular/interventional radiology consulted for possible EKOS As per them not a candidate for EKOS (2) Hypertension Current Visit: Yes Status: Chronic Qualifiers: Hypertension type: primary hypertension Qualified Code(s): I10 - Essential (primary) hypertension Plan to address problem: Continue antihypertensives and adjust medications (3) Leg wound, left Current Visit: Yes Status: Chronic Qualifiers: Encounter type: initial encounter Qualified Code(s): S81.802A - Unspecified open wound, left lower leg, initial encounter Plan to address problem: Wound care Left lower extremity in dressing (4) Pulmonary infarct Current Visit: Yes Status: Acute Plan to address problem: 3 chest pain on a as needed basis (5) Syncope Current Visit: Yes Status: Acute Qualifiers: Encounter type: initial encounter Plan to address problem: Secondary to PE No further work-up Echocardiogram if necessary (6) DVT prophylaxis Current Visit: Yes Status: Acute Plan to address problem: On heparin and GI prophylaxis
[2021-05-13 07:04] LABS: Alanine Aminotransferase 7 units/L (7-56); Albumin 3.4 g/dL (3.9-5); Blood Urea Nitrogen 14 mg/dL (7-17); Calcium 8.7 mg/dL (8.4-10.2); Hemolysis Index 2
[2021-05-13 07:11] LABS: BUN/Creatinine Ratio 23
--- NOTE | 2021-05-13 08:05 | Progress Note ---
Assessment and Plan Assessment and plan: #Acute pulmonary emboli #Pulmonary infarct -CTA showed extensive acute segmental and subsegmental bilateral pulmonary emboli in all lobes -Currently on heparin drip -Echocardiogram ordered due to syncopal episode and to assess right heart status -Plan to transition to oral anticoagulation, will need for early 6 months -Vascular surgery following, no plans for intervention at this time #Chronic left lower extremity wound #Lymphedema -arterial duplex ordered while inpatient -will need outpatient venous ultrasound with reflux -continue gabapentin #Hypokalemia -resolved #Hypertension -controlled -metoprolol restarted at home dose #Morbid obesity -BMI 55% -Patient essentially bedbound at home -Discussed importance of lifestyle modification and weight loss as it greatly affects her quality of life. Discussed possibility of bariatric surgery in the future. Patient voiced understanding. Time: 15 minutes #History of migraine headaches -imitrex PRN at home dose Disposition Plan: home once medically stable Total Time Spent with Patient (Minutes): 20 minutes History Interval history: No acute meds overnight. Patient reports feeling much better with oxygen than she did without it. Having pleuritic chest pain and a mild migraine. Otherwise no complaints today. Hospitalist Physical - Physical exam Narrative exam: GENERAL: Obese woman. Sitting in bed, no acute distress. HEENT: Nasal cannula at 3 L/min CHEST/LUNGS: CTAB. HEART/CARDIOVASCULAR: Tachycardic. No murmur, rubs or gallops appreciated. ABDOMEN: +BS. NT/ND. NEURO: No focal motor deficit. Follows all commands. EXTREMITIES: +lymphedema. Left lower extremity wrapped in Tay bandage. No cyanosis, clubbing. PSYCH: Cooperative. - Constitutional Vitals: Temp Pulse Resp BP Pulse Ox 97.6 F 102 H 20 96/61 95 05/13/21 03:32 05/13/21 03:32 05/13/21 03:32 05/13/21 03:32 05/13/21 03:32 General appearance: Present: mild distress, well-nourished HEART Score - HEART Score Age: 45-65 Risk factors: 1-2 risk factors Troponin: Troponin T 0.018 ng/mL (0.00-0.029) 05/12/21 11:25 Troponin: < normal limit Results - Labs CBC & Chem 7: 05/13/21 06:10 05/13/21 06:10 Labs: Laboratory Last Values WBC 11.6 K/mm3 (4.5-11.0) H 05/13/21 06:10 RBC 3.95 M/mm3 (3.65-5.03) 05/13/21 06:10 Hgb 11.1 gm/dl (10.1-14.3) 05/13/21 06:10 Hct 34.6 % (30.3-42.9) 05/13/21 06:10 MCV 87 fl (79-97) 05/13/21 06:10 MCH 28 pg (28-32) 05/13/21 06:10 MCHC 32 % (30-34) 05/13/21 06:10 RDW 14.5 % (13.2-15.2) 05/13/21 06:10 Plt Count 310 K/mm3 (140-440) 05/13/21 06:10 Lymph % (Auto) 10.3 % (13.4-35.0) L 05/13/21 06:10 [place] % (Auto) 3.7 % (0.0-7.3) 05/13/21 06:10 Eos % (Auto) 0.1 % (0.0-4.3) 05/13/21 06:10 Baso % (Auto) 0.3 % (0.0-1.8) 05/13/21 06:10 Lymph # (Auto) 1.2 K/mm3 (1.2-5.4) 05/13/21 06:10 [place] # (Auto) 0.4 K/mm3 (0.0-0.8) 05/13/21 06:10 Eos # (Auto) 0.0 K/mm3 (0.0-0.4) 05/13/21 06:10 Baso # (Auto) 0.0 K/mm3 (0.0-0.1) 05/13/21 06:10 Add Manual Diff Complete 05/12/21 11:25 Total Counted 100 05/12/21 11:25 Seg Neutrophils % 85.6 % (40.0-70.0) H 05/13/21 06:10 Seg Neuts % (Manual) 96.0 % (40.0-70.0) H 05/12/21 11:25 Band Neutrophils % 1.0 % 05/12/21 11:25 Lymphocytes % (Manual) 2.0 % (13.4-35.0) L 05/12/21 11:25 Monocytes % (Manual) 1.0 % (0.0-7.3) 05/12/21 11:25 Nucleated RBC % Not Reportable 05/12/21 11:25 Seg Neutrophils # 9.9 K/mm3 (1.8-7.7) H 05/13/21 06:10 Seg Neutrophils # Man 16.8 K/mm3 (1.8-7.7) H 05/12/21 11:25 Band Neutrophils # 0.2 K/mm3 05/12/21 11:25 Lymphocytes # (Manual) 0.4 K/mm3 (1.2-5.4) L 05/12/21 11:25 Abs React Lymphs (Man) 0.0 K/mm3 05/12/21 11:25 Monocytes # (Manual) 0.2 K/mm3 (0.0-0.8) 05/12/21 11:25 Eosinophils # (Manual) 0.0 K/mm3 (0.0-0.4) 05/12/21 11:25 Basophils # (Manual) 0.0 K/mm3 (0.0-0.1) 05/12/21 11:25 Metamyelocytes # 0.0 K/mm3 05/12/21 11:25 Myelocytes # 0.0 K/mm3 05/12/21 11:25 Promyelocytes # 0.0 K/mm3 05/12/21 11:25 Blast Cells # 0.0 K/mm3 05/12/21 11:25 WBC Morphology Not Reportable 05/12/21 11:25 Hypersegmented Neuts Not Reportable 05/12/21 11:25 Hyposegmented Neuts Not Reportable 05/12/21 11:25 Hypogranular Neuts Not Reportable 05/12/21 11:25 Smudge Cells Not Reportable 05/12/21 11:25 Toxic Granulation Not Reportable 05/12/21 11:25 Toxic Vacuolation Not Reportable 05/12/21 11:25 Dohle Bodies Not Reportable 05/12/21 11:25 Pelger-Huet Anomaly Not Reportable 05/12/21 11:25 Gary Rods Not Reportable 05/12/21 11:25 Platelet Estimate Consistent w auto 05/12/21 11:25 Clumped Platelets Not Reportable 05/12/21 11:25 Plt Clumps, EDTA Not Reportable 05/12/21 11:25 Large Platelets Not Reportable 05/12/21 11:25 Giant Platelets Not Reportable 05/12/21 11:25 Platelet Satelliting Not Reportable 05/12/21 11:25 Plt Morphology Comment Not Reportable 05/12/21 11:25 RBC Morphology Not Reportable 05/12/21 11:25 Dimorphic RBCs Not Reportable 05/12/21 11:25 Polychromasia Not Reportable 05/12/21 11:25 Hypochromasia Not Reportable 05/12/21 11:25 Poikilocytosis Not Reportable 05/12/21 11:25 Anisocytosis 1+ 05/12/21 11:25 Microcytosis Not Reportable 05/12/21 11:25 Macrocytosis Not Reportable 05/12/21 11:25 Spherocytes Not Reportable 05/12/21 11:25 Pappenheimer Bodies Not Reportable 05/12/21 11:25 Sickle Cells Not Reportable 05/12/21 11:25 Target Cells Not Reportable 05/12/21 11:25 Tear Drop Cells Not Reportable 05/12/21 11:25 Ovalocytes Not Reportable 05/12/21 11:25 Helmet Cells Not Reportable 05/12/21 11:25 [place] Bodies Not Reportable 05/12/21 11:25 [place] Rings Not Reportable 05/12/21 11:25 [place] Cells Not Reportable 05/12/21 11:25 Bite Cells Not Reportable 05/12/21 11:25 Crenated Cell Not Reportable 05/12/21 11:25 Elliptocytes Not Reportable 05/12/21 11:25 Acanthocytes (Spur) Not Reportable 05/12/21 11:25 Rouleaux Not Reportable 05/12/21 11:25 Hemoglobin C Crystals Not Reportable 05/12/21 11:25 Schistocytes Not Reportable 05/12/21 11:25 Malaria parasites Not Reportable 05/12/21 11:25 [place] Bodies Not Reportable 05/12/21 11:25 Hem Pathologist Commnt No 05/12/21 11:25 PT 14.3 Sec. (12.2-14.9) 05/12/21 11:25 INR 1.00 (0.87-1.13) 05/12/21 11:25 APTT 31.1 Sec. (24.2-36.6) 05/12/21 11:25 Heparin Anti-Xa Level 0.47 U.I./ml (0.3-0.7) 05/13/21 06:10 ABG pH 7.430 pH Units (7.350-7.450) 05/12/21 12:29 ABG pCO2 37.5 mm Hg 05/12/21 12:29 ABG pO2 55.3 mm Hg (80.0-90.0) L 05/12/21 12:29 ABG HCO3 24.3 mmol/L (20.0-26.0) 05/12/21 12:29 ABG O2 Saturation 89.3 % (95.0-99.0) L 05/12/21 12:29 ABG O2 Content 15.4 (0.0-44) 05/12/21 12:29 ABG Base Excess 0.2 mmol/L (-2.0-3.0) 05/12/21 12:29 ABG Hemoglobin 12.5 gm/dl (12.0-16.0) 05/12/21 12:29 ABG Carboxyhemoglobin 1.5 % (0.0-5.0) 05/12/21 12:29 ABG Methemoglobin 0.5 % (0.0-1.5) 05/12/21 12:29 Oxyhemoglobin 87.6 % (95.0-99.0) L 05/12/21 12:29 FiO2 21 % 05/12/21 12:29 Sodium 136 mmol/L (137-145) L 05/13/21 06:10 Potassium 4.3 mmol/L (3.6-5.0) D 05/13/21 06:10 Chloride 99.9 mmol/L (98-107) 05/13/21 06:10 Carbon Dioxide 21 mmol/L (22-30) L 05/13/21 06:10 Anion Gap 19 mmol/L 05/13/21 06:10 BUN 14 mg/dL (7-17) 05/13/21 06:10 Creatinine 0.6 mg/dL (0.6-1.2) 05/13/21 06:10 Estimated GFR > 60 ml/min 05/13/21 06:10 BUN/Creatinine Ratio 23 % 05/13/21 06:10 Glucose 118 mg/dL (65-100) H 05/13/21 06:10 Calcium 8.7 mg/dL (8.4-10.2) 05/13/21 06:10 Magnesium 1.90 mg/dL (1.7-2.3) 05/12/21 11:25 Total Bilirubin 0.40 mg/dL (0.1-1.2) 05/13/21 06:10 AST 9 units/L (5-40) 05/13/21 06:10 ALT 7 units/L (7-56) 05/13/21 06:10 Alkaline Phosphatase 111 units/L (35-129) 05/13/21 06:10 Troponin T 0.018 ng/mL (0.00-0.029) 05/12/21 11:25 Total Protein 7.2 g/dL (6.3-8.2) 05/13/21 06:10 Albumin 3.4 g/dL (3.9-5) L 05/13/21 06:10 Albumin/Globulin Ratio 0.9 % 05/13/21 06:10 Blood Type A POSITIVE 05/12/21 11:25 Antibody Screen Negative 05/12/21 11:25 Microbiology: Microbiology 05/12/21 14:54 Peripheral/Venous Blood Culture - Preliminary Culture in Progress 05/12/21 14:44 Peripheral/Venous Blood Culture - Preliminary Culture in Progress Fontana/IV: Voiding Method External Female Catheter Active Medications - Current Medications Current Medications: Generic Name Dose Route Start Last Admin Trade Name Freq PRN Reason Stop Dose Admin Acetaminophen 650 mg 05/12/21 22:03 Acetaminophen 325 Mg Tab PO Q4H PRN Pain MILD(1-3)/Fever >100.5/LUNA Acetaminophen/Butalbital/Caffeine 2 tab 05/12/21 21:54 Butalb/Acetaminophen/Caffeine Tab PO Q6H PRN Headache Hydrocodone Bitart/Acetaminophen 1 each 05/12/21 21:54 Hydrocodone/Acetaminophen 10-325mg Tab PO Q6H PRN Pain, Moderate (4-6) Famotidine 20 mg 05/13/21 10:00 Famotidine 20 Mg/2 Ml Inj IV BID BOBBY Ferrous Sulfate 325 mg 05/12/21 22:00 05/12/21 22:37 Ferrous Sulfate 325 Mg Tab PO 325 mg BID BOBBY Administration Heparin Sodium (Porcine) 4,800 unit 05/12/21 14:37 Heparin 10,000 Units/10 Ml Vial 40 unit/kg (4800 unit) IV Q6H PRN Anti-Xa Assay < 0.1 units/ml Hydromorphone HCl 0.5 mg 05/12/21 22:03 05/12/21 23:07 Hydromorphone 1 Mg/1 Ml Inj IV 0.5 mg Q3H PRN Administration Pain , Severe (7-10) Heparin Sodium/Sodium Chloride 25,000 unit in 500 mls @ 30 mls/hr 05/12/21 15:00 05/13/21 00:02 Heparin/ 0.45% Nacl-25,000 Unit/500 Ml IV 1,500 units/hr TITR BOBBY 30 mls/hr Titration Protocol 1,500 UNITS/HR Sodium Chloride 1,000 mls @ 75 mls/hr 05/12/21 22:15 05/12/21 22:39 Nacl 0.9% 1000 Ml IV 75 mls/hr DIRECT BOBBY Administration Metoclopramide HCl 10 mg 05/12/21 22:03 Metoclopramide 10 Mg/2 Ml Inj IV Q6H PRN Nausea And Vomiting Ondansetron HCl 4 mg 05/12/21 22:03 Ondansetron 4 Mg/2 Ml Inj IV Q8H PRN Nausea And Vomiting Sodium Chloride 10 ml 05/13/21 10:00 Sodium Chloride 0.9% 10 Ml Flush Syringe IV BID BOBBY Sodium Chloride 10 ml 05/12/21 22:03 Sodium Chloride 0.9% 10 Ml Flush Syringe IV PRN PRN LINE FLUSH
[2021-05-13] MEDS: HEPARIN/ 0.45% NACL DRIP 25,000 UNIT/500 ML BAG IV SCH (08:27)
[2021-05-13] MEDS: SODIUM CHLORIDE 0.9% 1000 ML 1,000 ML IV SCH ×2 (08:27→21:29)
--- NOTE | 2021-05-13 09:15 | Consultation ---
History of Present Illness - Reason for Consult Consult date: 05/13/21 Pulmonary embolism - History of Present Illness Patient with a history of chronic anemia for which she takes intermittent iron supplementation, chronic left leg venous stasis ulcer with superimposed lymphedema who presented following a syncopal episode. Per patient, her respiratory issues began on Friday as she had difficulty even climbing stairs and would have to rest about longterm through. Patient does not have a history of PE or DVT prior to this admission. CT scan demonstrates segmental and subsegmental pulmonary embolism. At time of exam, the patient is resting comfortably on oxygen by nasal cannula with no shortness of breath. Minimal amount of chest pain however no laterality. Past History Past Surgical History: Other (Left leg venous stasis ulcer) Medications and Allergies Allergies Allergy/AdvReac Type Severity Reaction Status Date / Time No Known Allergies Allergy Unverified 09/03/14 17:03 Home Medications Medication Instructions Recorded Confirmed Last Taken Type Ferrous Sulfate [Feosol 325mg] 325 mg PO BID 09/03/14 09/03/14 Unknown History Ibuprofen [Motrin 800 MG tab] 800 mg PO TID PRN 09/03/14 09/03/14 09/02/14 History SUMAtriptan SUCCINATE [Imitrex] 100 mg PO DAILY PRN 09/03/14 09/04/14 Unknown History Butalb/Acetamin/Caff 50-325-40 2 tab PO Q6H PRN #15 tablet 09/12/14 Unknown Rx [Fioricet 50-325-40] HYDROcodone/APAP 10-325 [[place]son 1 each PO Q6H PRN #10 tablet 09/12/14 Unknown Rx 10-325 mg TAB] guaiFENesin [Robitussin] 200 mg PO Q6HR #20 tablet 09/12/14 Unknown Rx levoFLOXacin [Levaquin] 500 mg PO QDAY #7 tablet 09/12/14 Unknown Rx Active Meds: Active Medications Acetaminophen (Acetaminophen 325 Mg Tab) 650 mg PO Q4H PRN PRN Reason: Pain MILD(1-3)/Fever >100.5/LUNA Acetaminophen/Butalbital/Caffeine (Butalb/Acetaminophen/Caffeine Tab) 2 tab PO Q6H PRN PRN Reason: Headache Hydrocodone Bitart/Acetaminophen (Hydrocodone/Acetaminophen 10-325mg Tab) 1 each PO Q6H PRN PRN Reason: Pain, Moderate (4-6) Famotidine (Famotidine 20 Mg/2 Ml Inj) 20 mg IV BID [facility] Ferrous Sulfate (Ferrous Sulfate 325 Mg Tab) 325 mg PO BID [facility] Last Admin: 05/12/21 22:37 Dose: 325 mg Documented by: Heparin Sodium (Porcine) (Heparin 10,000 Units/10 Ml Vial) 4,800 unit 40 unit/kg (4800 unit) IV Q6H PRN PRN Reason: Anti-Xa Assay < 0.1 units/ml Hydromorphone HCl (Hydromorphone 1 Mg/1 Ml Inj) 0.5 mg IV Q3H PRN PRN Reason: Pain , Severe (7-10) Last Admin: 05/12/21 23:07 Dose: 0.5 mg Documented by: Heparin Sodium/Sodium Chloride (Heparin/ 0.45% Nacl-25,000 Unit/500 Ml) 25,000 unit in 500 mls @ 30 mls/hr IV TITR [facility]; Protocol Last Admin: 05/13/21 08:27 Dose: 1,500 units/hr, 30 mls/hr Documented by: Sodium Chloride (Nacl 0.9% 1000 Ml) 1,000 mls @ 75 mls/hr IV DIRECT BOBBY Last Admin: 05/13/21 08:27 Dose: 75 mls/hr Documented by: Metoclopramide HCl (Metoclopramide 10 Mg/2 Ml Inj) 10 mg IV Q6H PRN PRN Reason: Nausea And Vomiting Ondansetron HCl (Ondansetron 4 Mg/2 Ml Inj) 4 mg IV Q8H PRN PRN Reason: Nausea And Vomiting Sodium Chloride (Sodium Chloride 0.9% 10 Ml Flush Syringe) 10 ml IV BID [facility] Sodium Chloride (Sodium Chloride 0.9% 10 Ml Flush Syringe) 10 ml IV PRN PRN PRN Reason: LINE FLUSH Review of Systems All systems: negative Exam - Constitutional Vitals: Temp Pulse Resp BP Pulse Ox 99.1 F 104 H 18 92/50 97 05/13/21 07:46 05/13/21 07:46 05/13/21 07:46 05/13/21 07:46 05/13/21 08:56 General appearance: Present: no acute distress, obese - EENT Eyes: Present: EOM intact ENT: hearing intact - Neck Neck: Present: normal ROM - Respiratory Respiratory effort: normal - Extremities Extremities: abnormal (Left Unna boot) Extremity abnormal: edema (Bilateral lower extremity swelling) - Abdominal General gastrointestinal: Present: deferred Female genitourinary: Present: deferred - Rectal Rectal Exam: deferred - Psychiatric Psychiatric: appropriate mood/affect, cooperative Results - Labs CBC & Chem 7: 05/13/21 06:10 05/13/21 06:10 Labs: Abnormal lab results 05/12/21 05/12/21 05/12/21 Range/Units 11:25 11:25 12:29 WBC 17.5 H (4.5-11.0) K/mm3 Lymph % (Auto) (13.4-35.0) % Seg Neutrophils % (40.0-70.0) % Seg Neuts % (Manual) 96.0 H (40.0-70.0) % Lymphocytes % (Manual) 2.0 L (13.4-35.0) % Seg Neutrophils # (1.8-7.7) K/mm3 Seg Neutrophils # Man 16.8 H (1.8-7.7) K/mm3 Lymphocytes # (Manual) 0.4 L (1.2-5.4) K/mm3 ABG pO2 55.3 L (80.0-90.0) mm Hg ABG O2 Saturation 89.3 L (95.0-99.0) % Oxyhemoglobin 87.6 L (95.0-99.0) % Sodium (137-145) mmol/L Potassium 3.4 L (3.6-5.0) mmol/L Carbon Dioxide (22-30) mmol/L Glucose 169 H (65-100) mg/dL Albumin 3.6 L (3.9-5) g/dL 05/13/21 05/13/21 Range/Units 06:10 06:10 WBC 11.6 H (4.5-11.0) K/mm3 Lymph % (Auto) 10.3 L (13.4-35.0) % Seg Neutrophils % 85.6 H (40.0-70.0) % Seg Neuts % (Manual) (40.0-70.0) % Lymphocytes % (Manual) (13.4-35.0) % Seg Neutrophils # 9.9 H (1.8-7.7) K/mm3 Seg Neutrophils # Man (1.8-7.7) K/mm3 Lymphocytes # (Manual) (1.2-5.4) K/mm3 ABG pO2 (80.0-90.0) mm Hg ABG O2 Saturation (95.0-99.0) % Oxyhemoglobin (95.0-99.0) % Sodium 136 L (137-145) mmol/L Potassium (3.6-5.0) mmol/L Carbon Dioxide 21 L (22-30) mmol/L Glucose 118 H (65-100) mg/dL Albumin 3.4 L (3.9-5) g/dL - Imaging and Cardiology CT scan - chest: report reviewed, image reviewed Assessment and Plan Patient with bilateral pulmonary embolism involving the segmental and subsegmental pulmonary arteries. Clinically, the patient is improving and no intervention at this time would be planned. Patient will need to be maintained on oral anticoagulation for at least 6 months following her discharge. With regards to her left lower extremity wound, the patient will need an arterial duplex which can be obtained here and in the outpatient setting the patient will need a venous ultrasound with reflux to determine if there is a degree of va scular component as opposed to simply lymphedema.
[2021-05-13] MEDS: FERROUS SULFATE 325 MG TAB PO SCH ×2 (10:06→21:31)
[2021-05-13] MEDS: FAMOTIDINE 20 MG/2 ML INJ IV SCH ×2 (10:06→21:32)
[2021-05-13] MEDS: HYDROmorphone 1 MG/1 ML INJ IV PRN (10:06)
[2021-05-13] MEDS: GABAPENTIN 300 MG CAP PO SCH ×2 (14:07→21:31)
[2021-05-13] MEDS: METOPROLOL SUCCINATE XL 50 MG TAB PO SCH (14:10)
[2021-05-13] MEDS: ASPIRIN EC 81 MG TAB PO SCH (14:10)
[2021-05-13] MEDS ORDERED: SUMAtriptan SUCCINATE 50 MG TAB PO PRN (14:13)
[2021-05-13] MEDS: MELATONIN 5 MG TAB PO PRN (21:31)
[2021-05-14] MEDS: HEPARIN/ 0.45% NACL DRIP 25,000 UNIT/500 ML BAG IV SCH (01:12)
[2021-05-14] MEDS: GABAPENTIN 300 MG CAP PO SCH ×4 (05:21→21:31)
[2021-05-14 05:50] LABS: Hematocrit 30.9 % (30.3-42.9); Mean Corpuscular HGB Conc 32 % (30-34); Mean Corpuscular Volume 89 fl (79-97); Platelet Count 232 K/mm3 (140-440); Red Blood Count 3.47 M/mm3 (3.65-5.03); Red Cell Distribution Width 14.7 % (13.2-15.2)
[2021-05-14 06:11] LABS: Blood Urea Nitrogen 15 mg/dL (7-17); Calcium 8.6 mg/dL (8.4-10.2); Hemolysis Index 1
[2021-05-14 06:14] LABS: BUN/Creatinine Ratio 21
--- NOTE | 2021-05-14 08:15 | Progress Note ---
Assessment and Plan Assessment and plan: #Acute pulmonary emboli #Pulmonary infarct -CTA showed extensive acute segmental and subsegmental bilateral pulmonary emboli in all lobes -will transition from heparin drip to eliquis; will need AC for 6 months -Echocardiogram shows dilated R heart chambers suggestive of cor pulmonale -Vascular surgery following, no plans for intervention at this time #Chronic left lower extremity wound #Lymphedema -wound appears to be healing when observed during dressing removal -arterial duplex and MICKY shows no peripheral vascular disease -will need outpatient venous ultrasound with reflux -continue wound care -continue gabapentin #Hypokalemia -resolved #Hypertension -controlled -continue metoprolol #Morbid obesity -BMI 55% -Patient essentially bedbound at home #History of migraine headaches -imitrex PRN at home dose Disposition Plan: Home once stable Total Time Spent with Patient (Minutes): 20 minutes History Interval history: No acute events overnight. Patient reports slight headache that she believes to be caused by supplemental O2. Pleuritic chest pain has improved significantly. No other complaints at this time. Hospitalist Physical - Physical exam Narrative exam: GENERAL: Obese woman. Sitting in bed, no acute distress. HEENT: Nasal cannula at 1 L/min CHEST/LUNGS: CTAB. HEART/CARDIOVASCULAR: RRR. No murmur, rubs or gallops appreciated. ABDOMEN: +BS. NT/ND. NEURO: No focal motor deficit. Follows all commands. EXTREMITIES: +lymphedema. Left lower extremity with two healing wounds on calf. No cyanosis, clubbing. PSYCH: Cooperative. - Constitutional Vitals: Temp Pulse Resp BP Pulse Ox 98.4 F 92 H 18 102/65 98 05/14/21 05:01 05/14/21 05:01 05/14/21 05:01 05/14/21 05:01 05/14/21 05:01 General appearance: Present: mild distress, well-nourished HEART Score - HEART Score Age: 45-65 Risk factors: 1-2 risk factors Troponin: Troponin T 0.018 ng/mL (0.00-0.029) 05/12/21 11:25 Troponin: < normal limit Results - Labs CBC & Chem 7: 05/14/21 05:08 05/14/21 05:08 Labs: Laboratory Last Values WBC 9.2 K/mm3 (4.5-11.0) 05/14/21 05:08 RBC 3.47 M/mm3 (3.65-5.03) L 05/14/21 05:08 Hgb 10.0 gm/dl (10.1-14.3) L 05/14/21 05:08 Hct 30.9 % (30.3-42.9) 05/14/21 05:08 MCV 89 fl (79-97) 05/14/21 05:08 MCH 29 pg (28-32) 05/14/21 05:08 MCHC 32 % (30-34) 05/14/21 05:08 RDW 14.7 % (13.2-15.2) 05/14/21 05:08 Plt Count 232 K/mm3 (140-440) 05/14/21 05:08 Lymph % (Auto) 10.3 % (13.4-35.0) L 05/13/21 06:10 [place] % (Auto) 3.7 % (0.0-7.3) 05/13/21 06:10 Eos % (Auto) 0.1 % (0.0-4.3) 05/13/21 06:10 Baso % (Auto) 0.3 % (0.0-1.8) 05/13/21 06:10 Lymph # (Auto) 1.2 K/mm3 (1.2-5.4) 05/13/21 06:10 [place] # (Auto) 0.4 K/mm3 (0.0-0.8) 05/13/21 06:10 Eos # (Auto) 0.0 K/mm3 (0.0-0.4) 05/13/21 06:10 Baso # (Auto) 0.0 K/mm3 (0.0-0.1) 05/13/21 06:10 Add Manual Diff Complete 05/12/21 11:25 Total Counted 100 05/12/21 11:25 Seg Neutrophils % 85.6 % (40.0-70.0) H 05/13/21 06:10 Seg Neuts % (Manual) 96.0 % (40.0-70.0) H 05/12/21 11:25 Band Neutrophils % 1.0 % 05/12/21 11:25 Lymphocytes % (Manual) 2.0 % (13.4-35.0) L 05/12/21 11:25 Monocytes % (Manual) 1.0 % (0.0-7.3) 05/12/21 11:25 Nucleated RBC % Not Reportable 05/12/21 11:25 Seg Neutrophils # 9.9 K/mm3 (1.8-7.7) H 05/13/21 06:10 Seg Neutrophils # Man 16.8 K/mm3 (1.8-7.7) H 05/12/21 11:25 Band Neutrophils # 0.2 K/mm3 05/12/21 11:25 Lymphocytes # (Manual) 0.4 K/mm3 (1.2-5.4) L 05/12/21 11:25 Abs React Lymphs (Man) 0.0 K/mm3 05/12/21 11:25 Monocytes # (Manual) 0.2 K/mm3 (0.0-0.8) 05/12/21 11:25 Eosinophils # (Manual) 0.0 K/mm3 (0.0-0.4) 05/12/21 11:25 Basophils # (Manual) 0.0 K/mm3 (0.0-0.1) 05/12/21 11:25 Metamyelocytes # 0.0 K/mm3 05/12/21 11:25 Myelocytes # 0.0 K/mm3 05/12/21 11:25 Promyelocytes # 0.0 K/mm3 05/12/21 11:25 Blast Cells # 0.0 K/mm3 05/12/21 11:25 WBC Morphology Not Reportable 05/12/21 11:25 Hypersegmented Neuts Not Reportable 05/12/21 11:25 Hyposegmented Neuts Not Reportable 05/12/21 11:25 Hypogranular Neuts Not Reportable 05/12/21 11:25 Smudge Cells Not Reportable 05/12/21 11:25 Toxic Granulation Not Reportable 05/12/21 11:25 Toxic Vacuolation Not Reportable 05/12/21 11:25 Dohle Bodies Not Reportable 05/12/21 11:25 Pelger-Huet Anomaly Not Reportable 05/12/21 11:25 Gary Rods Not Reportable 05/12/21 11:25 Platelet Estimate Consistent w auto 05/12/21 11:25 Clumped Platelets Not Reportable 05/12/21 11:25 Plt Clumps, EDTA Not Reportable 05/12/21 11:25 Large Platelets Not Reportable 05/12/21 11:25 Giant Platelets Not Reportable 05/12/21 11:25 Platelet Satelliting Not Reportable 05/12/21 11:25 Plt Morphology Comment Not Reportable 05/12/21 11:25 RBC Morphology Not Reportable 05/12/21 11:25 Dimorphic RBCs Not Reportable 05/12/21 11:25 Polychromasia Not Reportable 05/12/21 11:25 Hypochromasia Not Reportable 05/12/21 11:25 Poikilocytosis Not Reportable 05/12/21 11:25 Anisocytosis 1+ 05/12/21 11:25 Microcytosis Not Reportable 05/12/21 11:25 Macrocytosis Not Reportable 05/12/21 11:25 Spherocytes Not Reportable 05/12/21 11:25 Pappenheimer Bodies Not Reportable 05/12/21 11:25 Sickle Cells Not Reportable 05/12/21 11:25 Target Cells Not Reportable 05/12/21 11:25 Tear Drop Cells Not Reportable 05/12/21 11:25 Ovalocytes Not Reportable 05/12/21 11:25 Helmet Cells Not Reportable 05/12/21 11:25 [place] Bodies Not Reportable 05/12/21 11:25 Parsons Rings Not Reportable 05/12/21 11:25 Holmen Cells Not Reportable 05/12/21 11:25 Bite Cells Not Reportable 05/12/21 11:25 Crenated Cell Not Reportable 05/12/21 11:25 Elliptocytes Not Reportable 05/12/21 11:25 Acanthocytes (Spur) Not Reportable 05/12/21 11:25 Rouleaux Not Reportable 05/12/21 11:25 Hemoglobin C Crystals Not Reportable 05/12/21 11:25 Schistocytes Not Reportable 05/12/21 11:25 Malaria parasites Not Reportable 05/12/21 11:25 [place] Bodies Not Reportable 05/12/21 11:25 Hem Pathologist Commnt No 05/12/21 11:25 PT 14.3 Sec. (12.2-14.9) 05/12/21 11:25 INR 1.00 (0.87-1.13) 05/12/21 11:25 APTT 31.1 Sec. (24.2-36.6) 05/12/21 11:25 Heparin Anti-Xa Level 0.47 U.I./ml (0.3-0.7) 05/13/21 06:10 ABG pH 7.430 pH Units (7.350-7.450) 05/12/21 12:29 ABG pCO2 37.5 mm Hg 05/12/21 12:29 ABG pO2 55.3 mm Hg (80.0-90.0) L 05/12/21 12:29 ABG HCO3 24.3 mmol/L (20.0-26.0) 05/12/21 12:29 ABG O2 Saturation 89.3 % (95.0-99.0) L 05/12/21 12:29 ABG O2 Content 15.4 (0.0-44) 05/12/21 12:29 ABG Base Excess 0.2 mmol/L (-2.0-3.0) 05/12/21 12:29 ABG Hemoglobin 12.5 gm/dl (12.0-16.0) 05/12/21 12:29 ABG Carboxyhemoglobin 1.5 % (0.0-5.0) 05/12/21 12:29 ABG Methemoglobin 0.5 % (0.0-1.5) 05/12/21 12:29 Oxyhemoglobin 87.6 % (95.0-99.0) L 05/12/21 12:29 FiO2 21 % 05/12/21 12:29 Sodium 139 mmol/L (137-145) 05/14/21 05:08 Potassium 3.9 mmol/L (3.6-5.0) 05/14/21 05:08 Chloride 103.5 mmol/L (98-107) 05/14/21 05:08 Carbon Dioxide 24 mmol/L (22-30) 05/14/21 05:08 Anion Gap 15 mmol/L 05/14/21 05:08 BUN 15 mg/dL (7-17) 05/14/21 05:08 Creatinine 0.7 mg/dL (0.6-1.2) 05/14/21 05:08 Estimated GFR > 60 ml/min 05/14/21 05:08 BUN/Creatinine Ratio 21 % 05/14/21 05:08 Glucose 104 mg/dL (65-100) H 05/14/21 05:08 Calcium 8.6 mg/dL (8.4-10.2) 05/14/21 05:08 Magnesium 1.90 mg/dL (1.7-2.3) 05/12/21 11:25 Total Bilirubin 0.40 mg/dL (0.1-1.2) 05/13/21 06:10 AST 9 units/L (5-40) 05/13/21 06:10 ALT 7 units/L (7-56) 05/13/21 06:10 Alkaline Phosphatase 111 units/L (35-129) 05/13/21 06:10 Troponin T 0.018 ng/mL (0.00-0.029) 05/12/21 11:25 Total Protein 7.2 g/dL (6.3-8.2) 05/13/21 06:10 Albumin 3.4 g/dL (3.9-5) L 05/13/21 06:10 Albumin/Globulin Ratio 0.9 % 05/13/21 06:10 Coronavirus (PCR) Negative (Negative) 05/13/21 Unknown Blood Type A POSITIVE 05/12/21 11:25 Antibody Screen Negative 05/12/21 11:25 Microbiology: Microbiology 05/12/21 14:44 Peripheral/Venous Blood Culture - Preliminary NO GROWTH AFTER 24 HOURS 05/12/21 14:54 Peripheral/Venous Blood Culture - Preliminary NO GROWTH AFTER 24 HOURS [place]/IV: Voiding Method External Female Catheter Active Medications - Current Medications Current Medications: Generic Name Dose Route Start Last Admin Trade Name Freq PRN Reason Stop Dose Admin Acetaminophen 650 mg 05/12/21 22:03 Acetaminophen 325 Mg Tab PO Q4H PRN Pain MILD(1-3)/Fever >100.5/LUNA Acetaminophen/Butalbital/Caffeine 2 tab 05/12/21 21:54 Butalb/Acetaminophen/Caffeine Tab PO Q6H PRN Headache Hydrocodone Bitart/Acetaminophen 1 each 05/12/21 21:54 Hydrocodone/Acetaminophen 10-325mg Tab PO Q6H PRN Pain, Moderate (4-6) Aspirin 81 mg 05/13/21 14:00 05/13/21 14:10 Aspirin Ec 81 Mg Tab PO Not Given QDAY BOBBY Famotidine 20 mg 05/13/21 10:00 05/13/21 21:32 Famotidine 20 Mg/2 Ml Inj IV 20 mg BID BOBBY Administration Ferrous Sulfate 325 mg 05/12/21 22:00 05/13/21 21:31 Ferrous Sulfate 325 Mg Tab PO 325 mg BID BOBBY Administration Gabapentin 300 mg 05/13/21 14:00 05/14/21 05:21 Gabapentin 300 Mg Cap PO 300 mg Q8HR BOBBY Administration Heparin Sodium (Porcine) 4,800 unit 05/12/21 14:37 Heparin 10,000 Units/10 Ml Vial 40 unit/kg (4800 unit) IV Q6H PRN Anti-Xa Assay < 0.1 units/ml Hydromorphone HCl 0.5 mg 05/12/21 22:03 05/13/21 10:06 Hydromorphone 1 Mg/1 Ml Inj IV 0.5 mg Q3H PRN Administration Pain , Severe (7-10) Heparin Sodium/Sodium Chloride 25,000 unit in 500 mls @ 30 mls/hr 05/12/21 15:00 05/14/21 01:12 Heparin/ 0.45% Nacl-25,000 Unit/500 Ml IV 1,500 units/hr TITR BOBBY 30 mls/hr Administration Protocol 1,500 UNITS/HR Sodium Chloride 1,000 mls @ 75 mls/hr 05/12/21 22:15 05/13/21 21:29 Nacl 0.9% 1000 Ml IV 75 mls/hr DIRECT BOBBY Administration Melatonin 10 mg 05/13/21 22:00 05/13/21 21:31 Melatonin 5 Mg Tab PO 10 mg QHS PRN Administration Sleep Metoclopramide HCl 10 mg 05/12/21 22:03 05/13/21 16:33 Metoclopramide 10 Mg/2 Ml Inj IV 10 mg Q6H PRN Administration Nausea And Vomiting Metoprolol Succinate 50 mg 05/13/21 14:00 05/13/21 14:10 Metoprolol Succinate Xl 50 Mg Tab PO Not Given QDAY BOBBY Ondansetron HCl 4 mg 05/12/21 22:03 Ondansetron 4 Mg/2 Ml Inj IV Q8H PRN Nausea And Vomiting Sodium Chloride 10 ml 05/13/21 10:00 05/13/21 21:29 Sodium Chloride 0.9% 10 Ml Flush Syringe IV 10 ml BID BOBBY Administration Sodium Chloride 10 ml 05/12/21 22:03 Sodium Chloride 0.9% 10 Ml Flush Syringe IV PRN PRN LINE FLUSH Sumatriptan Succinate 100 mg 05/13/21 14:13 05/13/21 14:33 Sumatriptan Succinate 50 Mg Tab PO 100 mg Q2H PRN Administration Migraine Headache Nutrition/Malnutrition Assess - Dietary Evaluation Nutrition/Malnutrition Findings: Nutrition Notes Start: 05/13/21 09:18 Freq: Status: Active Protocol: Document 05/13/21 09:18 RONAK (Rec: 05/13/21 09:23 [facility] [id number]) Nutrition Notes 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 Burn Absent Trauma Absent Skin Integrity/Comment Chronic LLE wound Minimum of two criteria No Is patient on ventilator? No Is Patient Ambulatory and/or Out of Bed No REE-([place]-confined to bed) 2754.216 Kcal/Kg value to use for calculation 11 Approximate Energy Requirements Using 1808 kcal/Kg Calculation Used for Recommendations Kcal/kg Additional Notes Pro needs 1-1.2g/kg adjBW: 114 -137g/day Fluid needs 1ml/kcal Nutrition Intervention Follow-Up By: 05/17/21 Additional Comments F/U: intakes
[2021-05-14] MEDS: FERROUS SULFATE 325 MG TAB PO SCH ×2 (10:32→21:31)
[2021-05-14] MEDS: METOPROLOL SUCCINATE XL 50 MG TAB PO SCH (10:32)
[2021-05-14] MEDS: ASPIRIN EC 81 MG TAB PO SCH (10:32)
[2021-05-14] MEDS: FAMOTIDINE 20 MG/2 ML INJ IV SCH (10:33)
--- NOTE | 2021-05-14 14:30 | Vascular Lab Report ---
DUPLEX DOPPLER LOWER EXTREMITY ARTERIAL, BILATERAL INDICATION / CLINICAL INFORMATION: Nonhealing left ankle wound. TECHNIQUE: Arterial duplex examination of both lower extremities performed using B-mode, color flow and spectral Doppler assessment. FINDINGS: RIGHT: - Atherosclerotic Plaque & Vessel: No significant atherosclerotic plaque. - Elevated Velocity (>200 cm/s) & Vessel: None. - Abnormal Waveform & Vessel: None. LEFT: - Atherosclerotic Plaque & Vessel: No significant atherosclerotic plaque. - Elevated Velocity (>200 cm/s) & Vessel: None. - Abnormal Waveform & Vessel: None. ADDITIONAL FINDINGS: None. Right MICKY: 1.1 Left MICKY: 1.1 IMPRESSION: 1. No significant lower extremity peripheral artery disease. Ankle-Brachial Index (MICKY): - Calcified arteries > 1.4 - Normal = 0.9-1.4 - Mild PAD = 0.7-0.89 - Moderate PAD = 0.51-0.69 - Severe PAD < 0.5 Doppler Waveform: - Triphasic is normal. - Biphasic is abnormal if clear transition from triphasic signal along vascular tree. - Monophasic is abnormal. Signer Name: Anuj Wynne MD Signed: 05/14/2021 2:26 PM Workstation Name: [id number]
[2021-05-14 17:01] LABS: INR 0.94 (0.87-1.13)
[2021-05-14] MEDS: MELATONIN 5 MG TAB PO PRN (21:30)
[2021-05-14] MEDS: FAMOTIDINE 20 MG TAB PO SCH (21:31)
[2021-05-14] MEDS: APIXABAN 5 MG TAB PO SCH (21:31)
[2021-05-15] MEDS: GABAPENTIN 300 MG CAP PO SCH ×3 (05:52→21:28)
[2021-05-15] MEDS: APIXABAN 5 MG TAB PO SCH ×2 (09:26→21:28)
[2021-05-15] MEDS: FERROUS SULFATE 325 MG TAB PO SCH ×2 (09:26→21:28)
[2021-05-15] MEDS: FAMOTIDINE 20 MG TAB PO SCH ×2 (09:26→21:28)
[2021-05-15] MEDS: ASPIRIN EC 81 MG TAB PO SCH (09:26)
[2021-05-15] MEDS: METOPROLOL SUCCINATE XL 50 MG TAB PO SCH (09:27)
[2021-05-15] MEDS: HYDROcodone/ACETAMINOPHEN 10-325MG TAB PO PRN ×2 (09:32→17:00)
--- NOTE | 2021-05-15 10:54 | Electrocardiograph Report ---
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
--- NOTE | 2021-05-15 16:32 | Progress Note ---
Assessment and Plan Assessment and plan: #Acute pulmonary emboli #Pulmonary infarct -CTA showed extensive acute segmental and subsegmental bilateral pulmonary emboli in all lobes -Transitioned heparin drip to Eliquis 10 mg twice daily; will need AC for 6 months -Echocardiogram shows dilated R heart chambers suggestive of cor pulmonale -Vascular surgery following, no plans for intervention at this time #Acute hypoxic respiratory failure -Patient does not require oxygen at baseline -Currently on 2 L nasal cannula. Weaning as tolerated -Continue to monitor #Chronic left lower extremity wound #Lymphedema -wound appears to be healing when observed during dressing removal -arterial duplex and MICKY (05/14/2021) shows no peripheral vascular disease -will need outpatient venous ultrasound with reflux -continue wound care -continue gabapentin #Hypokalemia -resolved #Hypertension -controlled -continue metoprolol #Morbid obesity #Weight loss counseling #Exercise counseling -BMI 55% -Patient essentially bedbound at home. Counseled patient about need for weight loss, dietary changes, and incorporating exercise/cardiac activity into her regimen. Patient expressed understanding. Time: +15 minutes #History of migraine headaches -imitrex PRN at home dose #Advanced care planning -Disease education conducted, care plan discussed, diagnoses discussed, prognosis discussed, and patient acknowledges understanding with care plan -Time: +20 minutes #Discharge planning -Pending physical therapy evaluation for possible deconditioning. Afterwards patient can be discharged home Disposition Plan: Continue medical management. Pending possible discharge in a.m. Total Time Spent with Patient (Minutes): 45 minutes History Interval history: No acute events overnight. Hospitalist Physical - Constitutional Vitals: Temp Pulse Resp BP Pulse Ox 97.5 F L 93 H 17 103/57 97 05/15/21 13:55 05/15/21 16:00 05/15/21 13:29 05/15/21 13:29 05/15/21 13:29 General appearance: Present: no acute distress, well-nourished, obese - EENT Eyes: Present: PERRL, EOM intact ENT: hearing intact, clear oral mucosa, dentition normal - Neck Neck: Present: supple, normal ROM - Respiratory Respiratory effort: normal Respiratory: bilateral: CTA - Cardiovascular Rhythm: regular Heart Sounds: Present: S1 & S2 - Extremities Extremities: no ischemia, pulses intact, pulses symmetrical, No edema, normal temperature, normal color Peripheral Pulses: within normal limits - Abdominal General gastrointestinal: soft, non-tender, non-distended, normal bowel sounds - Integumentary Integumentary: Present: clear, warm, dry - Psychiatric Psychiatric: appropriate mood/affect, intact judgment & insight, memory intact, cooperative - Neurologic Neurologic: CNII-XII intact, moves all extremities - Allied Health Allied health notes reviewed: nursing HEART Score - HEART Score Age: 45-65 Risk factors: 1-2 risk factors Troponin: Troponin T 0.018 ng/mL (0.00-0.029) 05/12/21 11:25 Troponin: < normal limit Results - Labs CBC & Chem 7: 05/14/21 05:08 05/14/21 15:47 Labs: Laboratory Last Values WBC 9.2 K/mm3 (4.5-11.0) 05/14/21 05:08 RBC 3.47 M/mm3 (3.65-5.03) L 05/14/21 05:08 Hgb 10.0 gm/dl (10.1-14.3) L 05/14/21 05:08 Hct 30.9 % (30.3-42.9) 05/14/21 05:08 MCV 89 fl (79-97) 05/14/21 05:08 MCH 29 pg (28-32) 05/14/21 05:08 MCHC 32 % (30-34) 05/14/21 05:08 RDW 14.7 % (13.2-15.2) 05/14/21 05:08 Plt Count 232 K/mm3 (140-440) 05/14/21 05:08 Lymph % (Auto) 10.3 % (13.4-35.0) L 05/13/21 06:10 [place] % (Auto) 3.7 % (0.0-7.3) 05/13/21 06:10 Eos % (Auto) 0.1 % (0.0-4.3) 05/13/21 06:10 Baso % (Auto) 0.3 % (0.0-1.8) 05/13/21 06:10 Lymph # (Auto) 1.2 K/mm3 (1.2-5.4) 05/13/21 06:10 [place] # (Auto) 0.4 K/mm3 (0.0-0.8) 05/13/21 06:10 Eos # (Auto) 0.0 K/mm3 (0.0-0.4) 05/13/21 06:10 Baso # (Auto) 0.0 K/mm3 (0.0-0.1) 05/13/21 06:10 Add Manual Diff Complete 05/12/21 11:25 Total Counted 100 05/12/21 11:25 Seg Neutrophils % 85.6 % (40.0-70.0) H 05/13/21 06:10 Seg Neuts % (Manual) 96.0 % (40.0-70.0) H 05/12/21 11:25 Band Neutrophils % 1.0 % 05/12/21 11:25 Lymphocytes % (Manual) 2.0 % (13.4-35.0) L 05/12/21 11:25 Monocytes % (Manual) 1.0 % (0.0-7.3) 05/12/21 11:25 Nucleated RBC % Not Reportable 05/12/21 11:25 Seg Neutrophils # 9.9 K/mm3 (1.8-7.7) H 05/13/21 06:10 Seg Neutrophils # Man 16.8 K/mm3 (1.8-7.7) H 05/12/21 11:25 Band Neutrophils # 0.2 K/mm3 05/12/21 11:25 Lymphocytes # (Manual) 0.4 K/mm3 (1.2-5.4) L 05/12/21 11:25 Abs React Lymphs (Man) 0.0 K/mm3 05/12/21 11:25 Monocytes # (Manual) 0.2 K/mm3 (0.0-0.8) 05/12/21 11:25 Eosinophils # (Manual) 0.0 K/mm3 (0.0-0.4) 05/12/21 11:25 Basophils # (Manual) 0.0 K/mm3 (0.0-0.1) 05/12/21 11:25 Metamyelocytes # 0.0 K/mm3 05/12/21 11:25 Myelocytes # 0.0 K/mm3 05/12/21 11:25 Promyelocytes # 0.0 K/mm3 05/12/21 11:25 Blast Cells # 0.0 K/mm3 05/12/21 11:25 WBC Morphology Not Reportable 05/12/21 11:25 Hypersegmented Neuts Not Reportable 05/12/21 11:25 Hyposegmented Neuts Not Reportable 05/12/21 11:25 Hypogranular Neuts Not Reportable 05/12/21 11:25 Smudge Cells Not Reportable 05/12/21 11:25 Toxic Granulation Not Reportable 05/12/21 11:25 Toxic Vacuolation Not Reportable 05/12/21 11:25 Dohle Bodies Not Reportable 05/12/21 11:25 Pelger-Huet Anomaly Not Reportable 05/12/21 11:25 Gary Rods Not Reportable 05/12/21 11:25 Platelet Estimate Consistent w auto 05/12/21 11:25 Clumped Platelets Not Reportable 05/12/21 11:25 Plt Clumps, EDTA Not Reportable 05/12/21 11:25 Large Platelets Not Reportable 05/12/21 11:25 Giant Platelets Not Reportable 05/12/21 11:25 Platelet Satelliting Not Reportable 05/12/21 11:25 Plt Morphology Comment Not Reportable 05/12/21 11:25 RBC Morphology Not Reportable 05/12/21 11:25 Dimorphic RBCs Not Reportable 05/12/21 11:25 Polychromasia Not Reportable 05/12/21 11:25 Hypochromasia Not Reportable 05/12/21 11:25 Poikilocytosis Not Reportable 05/12/21 11:25 Anisocytosis 1+ 05/12/21 11:25 Microcytosis Not Reportable 05/12/21 11:25 Macrocytosis Not Reportable 05/12/21 11:25 Spherocytes Not Reportable 05/12/21 11:25 Pappenheimer Bodies Not Reportable 05/12/21 11:25 Sickle Cells Not Reportable 05/12/21 11:25 Target Cells Not Reportable 05/12/21 11:25 Tear Drop Cells Not Reportable 05/12/21 11:25 Ovalocytes Not Reportable 05/12/21 11:25 Helmet Cells Not Reportable 05/12/21 11:25 [place] Bodies Not Reportable 05/12/21 11:25 [place] Rings Not Reportable 05/12/21 11:25 [place] Cells Not Reportable 05/12/21 11:25 Bite Cells Not Reportable 05/12/21 11:25 Crenated Cell Not Reportable 05/12/21 11:25 Elliptocytes Not Reportable 05/12/21 11:25 Acanthocytes (Spur) Not Reportable 05/12/21 11:25 Rouleaux Not Reportable 05/12/21 11:25 Hemoglobin C Crystals Not Reportable 05/12/21 11:25 Schistocytes Not Reportable 05/12/21 11:25 Malaria parasites Not Reportable 05/12/21 11:25 [place] Bodies Not Reportable 05/12/21 11:25 Hem Pathologist Commnt No 05/12/21 11:25 PT 13.6 Sec. (12.2-14.9) 05/14/21 15:47 INR 0.94 (0.87-1.13) 05/14/21 15:47 APTT 55.0 Sec. (24.2-36.6) H 05/14/21 15:47 Heparin Anti-Xa Level 0.22 U.I./ml (0.3-0.7) L 05/14/21 15:47 ABG pH 7.430 pH Units (7.350-7.450) 05/12/21 12:29 ABG pCO2 37.5 mm Hg 05/12/21 12:29 ABG pO2 55.3 mm Hg (80.0-90.0) L 05/12/21 12:29 ABG HCO3 24.3 mmol/L (20.0-26.0) 05/12/21 12:29 ABG O2 Saturation 89.3 % (95.0-99.0) L 05/12/21 12:29 ABG O2 Content 15.4 (0.0-44) 05/12/21 12:29 ABG Base Excess 0.2 mmol/L (-2.0-3.0) 05/12/21 12:29 ABG Hemoglobin 12.5 gm/dl (12.0-16.0) 05/12/21 12:29 ABG Carboxyhemoglobin 1.5 % (0.0-5.0) 05/12/21 12:29 ABG Methemoglobin 0.5 % (0.0-1.5) 05/12/21 12:29 Oxyhemoglobin 87.6 % (95.0-99.0) L 05/12/21 12:29 FiO2 21 % 05/12/21 12:29 Sodium 139 mmol/L (137-145) 05/14/21 05:08 Potassium 3.9 mmol/L (3.6-5.0) 05/14/21 05:08 Chloride 103.5 mmol/L (98-107) 05/14/21 05:08 Carbon Dioxide 24 mmol/L (22-30) 05/14/21 05:08 Anion Gap 15 mmol/L 05/14/21 05:08 BUN 15 mg/dL (7-17) 05/14/21 05:08 Creatinine 0.7 mg/dL (0.6-1.2) 05/14/21 15:47 Estimated GFR > 60 ml/min 05/14/21 15:47 BUN/Creatinine Ratio 21 % 05/14/21 05:08 Glucose 104 mg/dL (65-100) H 05/14/21 05:08 Calcium 8.6 mg/dL (8.4-10.2) 05/14/21 05:08 Magnesium 1.90 mg/dL (1.7-2.3) 05/12/21 11:25 Total Bilirubin 0.40 mg/dL (0.1-1.2) 05/13/21 06:10 AST 9 units/L (5-40) 05/13/21 06:10 ALT 7 units/L (7-56) 05/13/21 06:10 Alkaline Phosphatase 111 units/L (35-129) 05/13/21 06:10 Troponin T 0.018 ng/mL (0.00-0.029) 05/12/21 11:25 Total Protein 7.2 g/dL (6.3-8.2) 05/13/21 06:10 Albumin 3.4 g/dL (3.9-5) L 05/13/21 06:10 Albumin/Globulin Ratio 0.9 % 05/13/21 06:10 Coronavirus (PCR) Negative (Negative) 05/13/21 Unknown Blood Type A POSITIVE 05/12/21 11:25 Antibody Screen Negative 05/12/21 11:25 Microbiology: Microbiology 05/12/21 14:54 Peripheral/Venous Blood Culture - Preliminary NO GROWTH AFTER 72 HOURS 05/12/21 14:44 Peripheral/Venous Blood Culture - Preliminary NO GROWTH AFTER 72 HOURS [place]/IV: Voiding Method External Female Catheter Active Medications - Current Medications Current Medications: Generic Name Dose Route Start Last Admin Trade Name Freq PRN Reason Stop Dose Admin Acetaminophen 650 mg 05/12/21 22:03 Acetaminophen 325 Mg Tab PO Q4H PRN Pain MILD(1-3)/Fever >100.5/LUNA Acetaminophen/Butalbital/Caffeine 2 tab 05/12/21 21:54 Butalb/Acetaminophen/Caffeine Tab PO Q6H PRN Headache Hydrocodone Bitart/Acetaminophen 1 each 05/12/21 21:54 05/15/21 09:32 Hydrocodone/Acetaminophen 10-325mg Tab PO 1 each Q6H PRN Administration Pain, Moderate (4-6) Apixaban 10 mg 05/14/21 22:00 05/15/21 09:26 Apixaban 5 Mg Tab PO 05/21/21 10:01 10 mg Q12HR BOBBY Administration Protocol Aspirin 81 mg 05/13/21 14:00 05/15/21 09:26 Aspirin Ec 81 Mg Tab PO 81 mg QDAY BOBBY Administration Famotidine 20 mg 05/14/21 22:00 05/15/21 09:26 Famotidine 20 Mg Tab PO 20 mg BID BOBBY Administration Ferrous Sulfate 325 mg 05/12/21 22:00 05/15/21 09:26 Ferrous Sulfate 325 Mg Tab PO 325 mg BID BOBBY Administration Gabapentin 300 mg 05/13/21 14:00 05/15/21 13:30 Gabapentin 300 Mg Cap PO 300 mg Q8HR BOBBY Administration Hydromorphone HCl 0.5 mg 05/12/21 22:03 05/13/21 10:06 Hydromorphone 1 Mg/1 Ml Inj IV 0.5 mg Q3H PRN Administration Pain , Severe (7-10) Melatonin 10 mg 05/13/21 22:00 05/14/21 21:30 Melatonin 5 Mg Tab PO 10 mg QHS PRN Administration Sleep Metoclopramide HCl 10 mg 05/12/21 22:03 05/13/21 16:33 Metoclopramide 10 Mg/2 Ml Inj IV 10 mg Q6H PRN Administration Nausea And Vomiting Metoprolol Succinate 50 mg 05/13/21 14:00 05/15/21 09:27 Metoprolol Succinate Xl 50 Mg Tab PO Not Given QDAY BOBBY Ondansetron HCl 4 mg 05/12/21 22:03 Ondansetron 4 Mg/2 Ml Inj IV Q8H PRN Nausea And Vomiting Sodium Chloride 10 ml 05/13/21 10:00 05/15/21 09:28 Sodium Chloride 0.9% 10 Ml Flush Syringe IV 10 ml BID BOBBY Administration Sodium Chloride 10 ml 05/12/21 22:03 Sodium Chloride 0.9% 10 Ml Flush Syringe IV PRN PRN LINE FLUSH Sumatriptan Succinate 100 mg 05/13/21 14:13 05/13/21 14:33 Sumatriptan Succinate 50 Mg Tab PO 100 mg Q2H PRN Administration Migraine Headache Nutrition/Malnutrition Assess - Dietary Evaluation Nutrition/Malnutrition Findings: Nutrition Notes Start: 05/13/21 09:18 Freq: Status: Active Protocol: Document 05/13/21 09:18 RONAK (Rec: 05/13/21 09:23 [facility] [id number]) Nutrition Notes 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 Burn Absent Trauma Absent Skin Integrity/Comment Chronic LLE wound Minimum of two criteria No Is patient on ventilator? No Is Patient Ambulatory and/or Out of Bed No REE-([facility]-confined to bed) 2754.216 Kcal/Kg value to use for calculation 11 Approximate Energy Requirements Using 1808 kcal/Kg Calculation Used for Recommendations Kcal/kg Additional Notes Pro needs 1-1.2g/kg adjBW: 114 -137g/day Fluid needs 1ml/kcal Nutrition Intervention Follow-Up By: 05/17/21 Additional Comments F/U: intakes - Attestation Statement I have reviewed and agreed w/ Malnutrition eval & tx plan: Yes
[2021-05-15] MEDS: MELATONIN 5 MG TAB PO PRN (21:28)
[2021-05-16] MEDS: HYDROcodone/ACETAMINOPHEN 10-325MG TAB PO PRN (05:53)
[2021-05-16] MEDS: GABAPENTIN 300 MG CAP PO SCH ×2 (05:54→13:03)
[2021-05-16 06:20] LABS: Hematocrit 30.3 % (30.3-42.9); Hemoglobin 9.7 gm/dl (10.1-14.3)
[2021-05-16] MEDS: METOPROLOL SUCCINATE XL 50 MG TAB PO SCH (10:08)
[2021-05-16] MEDS: APIXABAN 5 MG TAB PO SCH (10:08)
[2021-05-16] MEDS: FAMOTIDINE 20 MG TAB PO SCH (10:08)
[2021-05-16] MEDS: ASPIRIN EC 81 MG TAB PO SCH (10:09)
[2021-05-16] MEDS: FERROUS SULFATE 325 MG TAB PO SCH (10:09)
[2021-05-16 12:52] VITALS: BP 102/70
--- NOTE | 2021-05-16 13:03 | Discharge Summary ---
Providers - Providers Date of Admission: 05/12/21 15:26 Date of discharge: 05/16/21 Attending physician: LSIA GILBERT MD 05/13/21 05:14 Consult to Wound/ET Nurse [CONS] Stat Reason For Exam: wound eval 05/13/21 06:57 Consult to Wound/ET Nurse [CONS] Routine Reason For Exam: wound eval 05/15/21 10:42 Physical Therapy Evaluation and Treat [CONS] Routine Comment: Pending discharge Reason For Exam: Deconditioning. Hasn't been out of bed. Primary care physician: [facility] Hospitalization Reason for admission: Acute hypoxic respiratory failure Condition: Stable Pertinent studies: Reviewed. Procedures: None. Hospital course: Patient is a 56-year-old female with past medical history of chronic venous stasis of left leg complicated by ulcer with superimposed lymphedema, hypertension, morbid obesity, and history of migraines who presented with acute hypoxic respiratory failure secondary to acute pulmonary embolism with pulmonary infarct. The patient was initiated on heparin drip and transition to Eliquis. The patient will need to be anticoagulated for 6 months. An echocardiogram revealed dilate right heart chambers suggestive of cor pulmonale, and vascular surgery declined any surgical intervention at this time. The patient was evaluated for possible peripheral vascular disease, and it was found to be negative. The patient was counseled on weight loss and incorporating exercise. The patient expressed understanding. The patient was counseled in detail about anticoagulation regimen. Patient expressed understanding. Patient safe to go home. Disposition: 01 HOME / SELF CARE / HOMELESS Final Discharge Diagnosis (Prints w/discharge instructions): Acute pulmonary emboli, pulmonary infarct, acute hypoxic respiratory failure, chronic venous stasis of left lower extremity, venous stasis ulcer/wound of left leg, lymphedema, hypokalemia, hypertension, morbid obesity, history of migraines Time spent for discharge: 45 minutes Core Measure Documentation - Palliative Care Palliative Care/ Comfort Measures: Not Applicable - Core Measures Any of the following diagnoses?: DVT/PE - VTE Discharge Requirements Deep Vein Thrombosis/Pulmonary Embolism Present on Admission: Yes Has pt received <5 days of overlap therapy or INR<2.0: Yes Anticoagulant overlap therapy prescribed at discharge: No Contraindication No Overlap Therapy order at DC: Not Indicated - Acute VT Discharge Requirements Aspirin at discharge: No Reason for no aspirin on DC: Medical contraindication (Not indicated) ARTUR/ARB for LVSD if EF <40%: No Reason for no ARTUR/ARB: Medical contraindication (Not indicated) Beta radha at discharge: Yes Statin for LDL = or >100 mg/dl on DC: Not Applicable Reason for no statin on DC: Allergy or sensitivity - Heart Failure Discharge Requirements ARTUR/ARB for LVSD if EF <40%: Not Applicable Reason for no ARTUR/ARB: Medical contraindication (Not indicated) Beta radha at discharge: Yes - Stroke Discharge Requirements Statin for LDL = or >70 mg/dl on DC: Not Applicable Reason for no statin on DC: Adverse Reaction to Drug Anticoag for atrial fib/atrial flutter: Not Applicable Reason for no anticoag for AF/F on DC: Not Indicated Antithrombotic for ischemic stroke: No Reason for no antithrombotic on DC: Not Indicated Exam - Constitutional Vitals: Temp Pulse Resp BP Pulse Ox 98.3 F 68 20 102/70 95 05/16/21 12:42 05/16/21 12:42 05/16/21 12:42 05/16/21 12:42 05/16/21 12:42 General appearance: Present: no acute distress, well-nourished, obese - EENT Eyes: Present: PERRL, EOM intact ENT: hearing intact, clear oral mucosa, dentition normal - Neck Neck: Present: supple, normal ROM - Respiratory Respiratory effort: normal Respiratory: bilateral: CTA - Cardiovascular Rhythm: regular Heart Sounds: Present: S1 & S2 - Extremities Extremities: no ischemia, pulses intact, pulses symmetrical, normal temperature Extremity abnormal: edema (Chronic venous stasis of bilateral lower extremities to mid rubio) Peripheral Pulses: within normal limits - Abdominal General gastrointestinal: Present: soft, non-tender, non-distended, normal bowel sounds Female genitourinary: Present: deferred - Rectal Rectal Exam: deferred - Integumentary Integumentary: Present: clear, warm, dry - Musculoskeletal Musculoskeletal: strength equal bilaterally - Psychiatric Psychiatric: appropriate mood/affect, intact judgment & insight, memory intact, cooperative - Neurologic Neurologic: CNII-XII intact - Allied Health Allied health notes reviewed: nursing Plan Activity: no restrictions Diet: low salt Care Plan Goals: Patient safe for discharge home. Assessment: The patient was admitted for acute hypoxic respiratory failure that was found to be secondary to acute pulmonary embolism complicated by pulmonary infarct. The patient was transitioned from heparin drip to Eliquis, and the patient was educated at length about dosage and administration. Patient was evaluated for possible pulmonary vascular disease, that was found to be negative. The patient expresses complete understanding, and is medically cleared for discharge. Follow up with: PRIMARY CARE, [Primary Care Provider] - 14 Days Forms: Work/School Release Form Prescriptions: Melatonin [Melatonin 5MG TAB] 10 mg PO QHS PRN #30 tablet PRN Reason: Sleep Apixaban [Eliquis] 10 mg PO Q12HR #18 tablet Apixaban [Eliquis] 5 mg PO Q12HR #60 tablet
[2021-05-21] MEDS ORDERED: APIXABAN 5 MG TAB PO SCH (22:00)
== END 2021-05-16 15:45 | disposition home health service (06) | DRG 175 ==
LOC: ED 10:30 → 4A 15:26
PROVIDERS: ADMIT Internal Medicine; ATTEND Student in an Organized Health Care Education/Training Program
PROC: 4A033R1 Measurement of Arterial Saturation, Peripheral, Percutaneous Approach (ICD-10-PCS; principal; 2021-05-12)
DX: I26.99 Other pulmonary embolism without acute cor pulmonale (principal); J96.01 Acute respiratory failure with hypoxia; Z68.43 Body mass index [BMI] 50.0-59.9, adult; S81.802A Unspecified open wound, left lower leg, initial encounter; E66.01 Morbid (severe) obesity due to excess calories; I10 Essential (primary) hypertension; M19.90 Unspecified osteoarthritis, unspecified site; G43.909 Migraine, unspecified, not intractable, without status migrainosus; Z90.49 Acquired absence of other specified parts of digestive tract; Y93.89 Activity, other specified; Y92.89 Other specified places as the place of occurrence of the external cause; E87.6 Hypokalemia; I89.0 Lymphedema, not elsewhere classified; I87.8 Other specified disorders of veins; Z20.822 Contact with and (suspected) exposure to COVID-19
CPT/HCPCS: 36415; 70450; 71045; 71275; 80048; 80053; 82565; 82803; 83735; 84484; 85007; 85014; 85018; 85025; 85027; 85520; 85610; 85730; 86850; 86900; 86901; 87040; 93005; 93306; 93922; 93925; G0378; J3490; Q0162; J0456; J0696; J1170; J1644; J2405; J2765; J7030; Q9967; U0003